=== PATIENT | male | born 1990 | race Caucasian/White ===

== ENCOUNTER 2019-10-10 15:45 | Emergency (ER) | payer OTHER, SELFPAY ==
[2019-10-10 15:57] VITALS: BP 138/73; PULSE 94; RESP 16; TEMP 36.9; O2SAT 99
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
[2019-10-10] MEDS: KETOROLAC (*BKC) 60 MG/2 ML VIAL IM (17:09)
== END 2019-10-10 17:40 | disposition home or self-care (01) ==
PROVIDERS: Emergency Provider Nurse Practitioner; PCP Physician Assistant
DX: M54.5 Low back pain (principal); M54.6 Pain in thoracic spine; Z87.891 Personal history of nicotine dependence
CPT/HCPCS: 96372; 99213; G0463; J1885

== ENCOUNTER 2020-12-29 14:01 | Emergency (ER) | payer OTHER, SELFPAY ==
--- NOTE | 2020-12-29 14:05 | ED.GENADULT ---
HPI - General Adult General Chief complaint: Nausea/Vomiting/Diarrhea Stated complaint: Back pain,upset stomach Time Seen by Provider: 12/29/20 14:16 Source: patient and RN notes reviewed Mode of arrival: ambulatory Limitations: no limitations History of Present Illness HPI narrative: 30-year-old male presents with multiple complaints. Reports chronic issues with back pain related to work. Reports over the last several days he has had mild low back muscle pain. He reports taking Tylenol, no other intervention. He denies perianal anesthesia, fever, abdominal pain. In a separate complaint he reports several episodes of vomiting and diarrhea last night after eating out at a restaurant. Reports no vomiting or diarrhea occurred overnight or today. Reports today he has been able to eat toast and drink soda without nausea vomiting or diarrhea. He denies bloody stools, decreased urine output, dry mouth. Denies intervention. MD complaint: Nausea vomiting Related Data Home Medications Medication Instructions Recorded Confirmed No Home Medications 12/29/20 12/29/20 Allergies Allergy/AdvReac Type Severity Reaction Status Date / Time No Known Allergies Allergy Verified 12/29/20 14:18 Review of Systems Review of Systems: Narrative: GENERAL: Well-appearing, well-nourished, and in no acute distress. HEAD: Normocephalic, atraumatic. EYES: PERRLA and EOMI. NECK: Supple. No lymphadenopathy. CHEST: Clear to auscultation. No respiratory distress. HEART: Regular rate and rhythm. Distal pulses palpable and equal, cap refill <3 seconds ABDOMEN: Soft, nontender, nondistended, normal active bowel sounds, no palpable or pulsatile masses. No CVA tenderness MUSCULOSKELETAL: Normal range of motion and strength in all extremities; 5/5 strength with hip flexion and extension, dorsiflexion and extension, knee flexion and extension, plantar flexion and extension. Normal sensation in dermatomal distributions with sensitivity to light touch and pain. No midline back tenderness to palpation. No paraspinal tenderness. Transfers from lying to sitting to standing. SKIN: Warm, dry, no rash. No ecchymosis, erythema, open wounds to back. NEURO: No focal deficits. Alert and oriented x3. Reflexes intact. Normal gait. PSYCH: Normal mood and affect All systems reviewed & are unremarkable except as noted in HPI and below PMFSH Social History Social History (Updated 10/10/19 @ 16:57 by Jana Alvarez CNP) Smoking status: Former smoker Alcohol intake: current Comments At time of signature, agree with nursing past medical, surgical, social and family history. There is no relevant family history pertinent to the presenting complaint Exam Narrative: Exam Narrative: GENERAL: Well-appearing, well-nourished, and in no acute distress. HEAD: Normocephalic. EYES: PERRLA, conjunctivae clear. NECK: Supple. No lymphadenopathy CHEST: Clear to auscultation. No respiratory distress. HEART: Regular rate and rhythm. ABDOMEN: Soft, nontender upon palpation, nondistended, normal active bowel sounds, no palpable or pulsatile masses, no guarding. No CVA tenderness SKIN: Warm, dry, no rash. NEURO: Alert and oriented x3. PSYCH: Normal mood and affect Course Course Emergency Course: Patient is aware of diagnosis, understands and agrees to treatment plan. Anticipatory guidance given. Patient agrees to follow-up as directed and is aware of reasons to seek care at the emergency department. Portions of this record may have been created with voice recognition software Vital Signs Vital signs: Vital Signs Temperature 98.3 F 12/29/20 14:08 Pulse Rate 92 12/29/20 14:08 Respiratory Rate 20 12/29/20 14:08 Blood Pressure 131/82 12/29/20 14:08 Pulse Oximetry 100 12/29/20 14:08 Temperature 98.3 F 12/29/20 14:08 Pulse Rate 92 12/29/20 14:08 Respiratory Rate 20 12/29/20 14:08 Blood Pressure 131/82 12/29/20 14:08 Pulse Oximetry 100 12/29/20 14
[2020-12-29 14:08] VITALS: BP 131/82; PULSE 92; RESP 20; TEMP 36.8; O2SAT 100
== END 2020-12-29 14:30 | disposition home or self-care (01) ==
PROVIDERS: Emergency Provider Nurse Practitioner; PCP Physician Assistant
DX: M54.5 Low back pain (principal); R11.2 Nausea with vomiting, unspecified; R19.7 Diarrhea, unspecified; Z87.891 Personal history of nicotine dependence
CPT/HCPCS: 99211; G0463

== ENCOUNTER 2021-03-01 16:48 | Emergency (ER) | payer OTHER, SELFPAY ==
--- NOTE | ~2021-03-01 | XR_ITS ---
EXAMINATION: XR cervical spine 4-5V DATE: 03/01/2021 17:58 INDICATION: Left-sided neck pain. TECHNIQUE: 5 views of cervical spine were obtained. COMPARISON: None. FINDINGS: There is mild kyphosis of cervical spine. There is 4 degrees dextrocurvature of cervical sp ine. Vertebral body heights and intervertebral disc heights are normal. The facet joints are unremark able. No central canal stenosis or prevertebral soft tissue swelling. IMPRESSION: 1. No etiology for the patient's symptoms. Reviewed, dictated and finalized at location A.
[2021-03-01 16:54] VITALS: BP 150/80; PULSE 105; RESP 18; TEMP 36.1; O2SAT 99
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
== END 2021-03-01 18:35 | disposition home or self-care (01) ==
PROVIDERS: Emergency Provider Nurse Practitioner; PCP Physician Assistant
DX: M54.2 Cervicalgia (principal); M10.9 Gout, unspecified
CPT/HCPCS: 72050; 99213; G0463

== ENCOUNTER 2023-09-15 19:16 | Emergency (ER) | payer OTHER, SELFPAY ==
[2023-09-15 19:22] VITALS: BP 137/82; PULSE 108; RESP 20; TEMP 37.1; O2SAT 100
[2023-09-15 19:41] VITALS: BP 137/82; PULSE 108; RESP 20; TEMP 37.1; O2SAT 100
--- NOTE | 2023-09-15 19:50 | ED.URI ---
HPI - URI/Sore Throat General Chief Complaint: Upper Respiratory Infection Stated Complaint: throat/headache/nausea Time Seen by Provider: 09/15/23 19:50 Source: patient, RN notes reviewed and old records reviewed Mode of arrival: ambulatory Limitations: no limitations History of Present Illness HPI Narrative: 33 year old male who presents to [facility] with complaints of sore throat, headache, cough, with some chest tightness with nausea and vomiting since Thursday. Patient reports that he has been exposed to co-workers who have had strep and flu. Patient reports that he has been taking cold/flu medication and using Emergen-C for his symptoms. Patient reports recent pain stimulator placed in his back by doctor at [facility]. MD elicited complaint: cough, sore throat and other (headache, nausea and vomiting) Onset (ago): day(s) (4) Pain scale (0-10): 5 Able to tolerate fluids by mouth: Yes Treatments prior to arrival: other (Emergen-C and cold and flu medication) Related Data Home Medications Medication Instructions Recorded Confirmed allopurinol 200 mg tablet 200 mg PO DAILY 09/15/23 09/15/23 colchicine 0.6 mg tablet 0.6 mg PO DAILY 09/15/23 09/15/23 indomethacin 50 mg capsule 50 mg PO TID 09/15/23 09/15/23 Allergies Allergy/AdvReac Type Severity Reaction Status Date / Time No Known Allergies Allergy Verified 09/15/23 19:32 Review of Systems Review of Systems: CONSTITUTIONAL: Reports malaise, chills, sweats, or fever. EYES: Denies visual changes, redness, or discharge. ENT: Reports rhinorrhea, congestion, sinus pain, no otalgia and positive for sore throat. CARDIOVASCULAR: Denies chest pain, palpitations, or edema. RESPIRATORY: Reports cough.? Denies dyspnea, states some chest tightness with cough GASTROINTESTINAL: Denies abdominal pain, positive for episodes of nausea, vomiting, no diarrhea SKIN: Denies rash or itching. MUSCULOSKELETAL: Denies myalgia. NEUROLOGIC:Reports headache. All systems reviewed & are unremarkable except as noted in HPI and below PMFSH Past Medical History Medical History (Updated 09/16/23 @ 13:43 by Ekta Reynoso NP) Asthma as child Gout Pain, chronic recent insertion of pain stimulator Surgical History Surgical History (Updated 09/16/23 @ 13:42 by Ekta Reynoso NP) History of foot surgery left Family History Family History Other Diabetes mellitus Heart disease Hypertension Social History Social History (Updated 03/01/21 @ 18:24 by Jana Alvarez, SVETLANA) Smoking status: Never smoker Alcohol intake: current Comments At time of signature, agree with nursing past medical, surgical, social and family history. There is no relevant family history pertinent to the presenting complaint Exam Narrative: GENERAL: Well-appearing, well-nourished, and in no acute distress. HEAD: Normocephalic EYES: PERRLA, conjunctivae clear ENT: Nares clear, turbinates edematous and erythematous, clear discharge. Mucous membranes moist. TM pearly june with dull light reflex bilaterally; no tragal tenderness. Oropharynx erythematous without lesions. Tonsils not enlarged and without exudate, no drooling, no hoarseness, no trismus, uvula midline.post nasal drainage. NECK: Supple. No lymphadenopathy CHEST: Clear to auscultation, breath sounds equal. No wheezing, rhonchi, rales, or stridor. No respiratory distress, speaks in full sentences.cough SAO2 100% on room air HEART: Regular rate and rhythm. No murmur heard. SKIN: Warm, dry, no rash. NEURO: Alert and oriented x3. PSYCH: Normal mood and affect Course Course Emergency Course: Patient is aware of diagnosis, understands and agrees to treatment plan.? Anticipatory guidance given.? Patient agrees to follow-up as directed and is aware of reasons to seek care at the emergency department. Portions of this record may have
== END 2023-09-15 20:16 | disposition home or self-care (01) ==
PROVIDERS: Emergency Provider Registered Nurse; PCP Physician Assistant
DX: B34.9 Viral infection, unspecified (principal); J45.909 Unspecified asthma, uncomplicated; Z79.899 Other long term (current) drug therapy; Z20.822 Contact with and (suspected) exposure to COVID-19
CPT/HCPCS: 87081; 87426; 87804; 87880; 99213; G0463

== ENCOUNTER 2024-04-15 14:20 | Emergency (ER) | payer OTHER, SELFPAY ==
[2024-04-15 14:25] VITALS: BP 132/96; PULSE 123; RESP 16; TEMP 37.2; O2SAT 100
[2024-04-15 14:30] VITALS: BP 132/96; PULSE 123; RESP 16; TEMP 37.2; O2SAT 100
--- NOTE | 2024-04-15 14:34 | ED.NAVMDI ---
HPI - Nausea/Vomiting/Diarrhea General Chief complaint: Nausea/Vomiting/Diarrhea Stated complaint: Diarrhea/Vimiting Time Seen by Provider: 04/15/24 14:34 Source: patient and RN notes reviewed Mode of arrival: ambulatory Limitations: no limitations History of Present Illness HPI Narrative: 34 y/o male presented after 2 days of n/v/d. States today symptoms are improving. Has attributed his symptoms to food poisoning, and has been working outside in the heat. Denies abdominal pain, hematochezia, melena, or fever. Took Nauzene for symptoms. Related Data Home Medications Medication Instructions Recorded Confirmed allopurinol 200 mg tablet 200 mg PO DAILY 09/15/23 09/15/23 colchicine 0.6 mg tablet 0.6 mg PO DAILY 09/15/23 09/15/23 indomethacin 50 mg capsule 50 mg PO TID 09/15/23 09/15/23 lisinopril 20 mg tablet mg 04/15/24 Allergies Allergy/AdvReac Type Severity Reaction Status Date / Time No Known Allergies Allergy Verified 09/15/23 19:32 Review of Systems Review of Systems: CONSTITUTIONAL: Denies body aches, fever, chills ENT: Denies rhinorrhea, congestion CARDIOVASCULAR: Denies chest pain, palpitations, or edema. RESPIRATORY: Denies cough or dyspnea. GASTROINTESTINAL: Endorses nausea, vomiting, diarrhea. Denies abdominal pain, hematochezia, melena, hematemesis SKIN: Denies rash, itching, or wounds. MUSCULOSKELETAL: Denies back pain, joint pain, or myalgia. NEUROLOGIC: Denies headache, numbness, tingling, or weakness. All systems reviewed & are unremarkable except as noted in HPI and below PMFSH Past Medical History Medical History Asthma as child Gout Pain, chronic recent insertion of pain stimulator Surgical History Surgical History History of foot surgery left Family History Family History Other Diabetes mellitus Heart disease Hypertension Social History Social History Smoking status: Never smoker Alcohol intake: current Comments At time of signature, I have reviewed and agree with nursing past medical, surgical, social and family history unless otherwise noted. Please see nursing chart for further information. There is no relevant family history pertinent to the presenting complaint Exam Narrative: GENERAL: Well-appearing, and in no acute distress. EYES: EOMI. Conjunctivae normal. ENT: Mucous membranes pink and moist. CHEST: No respiratory distress. Clear to auscultation. HEART: Regular rate and rhythm. No murmur appreciated. Normal peripheral pulses. ABDOMEN: abd soft, nondistended, normal active bowel sounds. Nontender abdomen; No guarding, rebound tenderness, asymmetry EXTREMITIES: Normal range of motion. No edema. SKIN: Warm, dry, no rash. Capillary refill normal. Normal skin turgor. NEURO: No focal deficits. Alert and oriented x3. PSYCH: Normal affect. Course Course Emergency Course: Patient is aware of diagnosis, understands and agrees to treatment plan. Anticipatory guidance given. Patient agrees to follow-up as directed and is aware of reasons to seek care at the emergency department. Portions of this record may have been created with voice recognition software Level of Care: Express Care Visit Vital Signs Vital signs: Vital Signs Temperature 98.9 F 04/15/24 14:25 Pulse Rate 123 H 04/15/24 14:25 Respiratory Rate 16 04/15/24 14:25 Blood Pressure 132/96 H 04/15/24 14:25 Pulse Oximetry 100 04/15/24 14:25 Oxygen Delivery Room Air 04/15/24 14:25 Temperature 98.9 F 04/15/24 14:30 Pulse Rate 123 H 04/15/24 14:30 Respiratory Rate 16 04/15/24 14:30 Blood Pressure 132/96 H 04/15/24 14:30 Pulse Oximetry 100 04/15/24 14:30 Oxygen Delivery Room Air 04/15/24 14:30 MDM - Nausea/Vomiting/
== END 2024-04-15 14:46 | disposition home or self-care (01) ==
PROVIDERS: Emergency Provider Nurse Practitioner Family; PCP Physician Assistant
DX: R11.2 Nausea with vomiting, unspecified (principal); R19.7 Diarrhea, unspecified; M10.9 Gout, unspecified
CPT/HCPCS: 99213; G0463

== ENCOUNTER 2024-12-20 22:15 | Emergency (ER) | payer OTHER, SELFPAY ==
--- NOTE | ~2024-12-20 | CT_ITS ---
CT thoracic lumbar wo con Ordering provider: Bairon Chamorro PA-C History: . mid back pain s/p lumbar injection . Comparison: None. Technique: CT thoracic and lumbar spine without contrast. Automated exposure control and iterative r econstruction technique were employed. The dose-length product was 2380.04 mGy-cm. FINDINGS: VERTEBRAE: Normal height and alignment. No subluxation or visible acute fracture. Degenerative change s of the lower thoracic and lumbar spine. DISC SPACES: Well maintained. No significant stenosis as visualized. Mild diffuse disc bulge is seen at the levels of L2-L3 and L3-L4. Diffuse disc bulge at the level of L4-L5 with narrowing of the left foramen. Mild diffuse disc bulge is seen at the level of L5-S1. PARASPINOUS SOFT TISSUES: Subcutaneous edema is seen in at the level of L2 and L5. This may be the si te of the injection. Infection is possible. Clinical correlation advised. IMPRESSION: No acute osseous abnormality of the thoracic and lumbar spine. Edema in the subcutaneous tissues opposite L2 and L5. This may be postinjection or due to infection. Clinical correlation advised. Reviewed, dictated and finalized at location A.
--- OUTSIDE RECORDS SUMMARY | 2024-12-20 22:17 | XMS_ITS | Clinical Summary ---
Author Organization [facility] Address [address] [place] [address] Care Team Providers Care Guard Driver Name Role Phone Ronak Kelly Primary Care Provider [phone] Allergies No known active allergies Medications colchicine (COLCRYS) 0.6 mg tablet Take 1 tablet (0.6 mg total) by mouth daily 2 Active allopurinoL (ZYLOPRIM) 300 mg tablet Take 1 tablet (300 mg total) by mouth daily Active celecoxib (CeleBREX) 200 mg capsule Take 1 capsule (200 mg total) by mouth daily 3 Active lisinopriL (PRINIVIL,ZESTR IL) 20 mg tablet Take 1 tablet (20 mg total) by mouth daily Active albuterol HFA (PROVENTIL HFA,VENTOLIN HFA,PROAIR HFA) 90 mcg/actuation inhaler Inhale 2 puffs every 6 (six) hours as needed for shortness of breath Active ALPRAZolam (XANAX) 0.5 mg tablet Take 1 tablet (0.5 mg total) by mouth nightly as needed for anxiety 30 tablet 4 Active indomethacin (INDOCIN) 25 mg capsule Take 1 capsule (25 mg total) by mouth 2 (two) times a day with meals Active fluticasone furoate (ARNUITY) 100 mcg/actuation inhaler Inhale 1 puff daily Rinse mouth with water after use. Do not swallow. 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 S/P insertion of spinal cord stimulator 02/25/20 23 No diagnosis on Huggins I 12/09/2022 Other chronic pain 12/09/2022 Pain in joint involving left ankle and foot 11/05 Complex regional pain syndro me type 1 of left lower extremity 11/05/2022 Chronic postoperative pain 11/05/2022 Foot pain 05/08/2022 Headache 05/08/2022 Hematochezia 05/08/2022 Pain in finger 05/08/2022 Tingling of skin 05/08/2022 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 Pulmonary at [address] [phone] Yamil Vance MD 11/29/2024 10:58 AM CDT - 11/29/2024 11:59 PM CDT Hospital Encounter [facility] Respiratory [address] [place] [address] SOB (shortness of breath) Discharge Disposition: Discharge to home or self care 11/08/[address] [facility] Pulmonary at [address] [phone] Katie Monroy LPN 11/07/[address] [facility] Pulmonary at [address] [phone] Inez Person LPN testing 11/01/2024 10:00 AM POLISHER ALUMINUM Office Visit [facility] Pulmonary at [address] [phone] Yamil Vance MD Panic attacks (Primary Dx); Hyperventilation; SOB (shortness of breath) 10/28/2024 3:49 PM POLISHER ALUMINUM - 10/28/2024 11:59 PM POLISHER ALUMINUM Hospital Encounter [facility] [address] [place] [address] Lumbar radicular pain Discharge Disposition: Discharge to home or self care from Last 3 Months Surgical History Surgery Date Site/Laterality Comments TREATMENT FISTULA ANAL FLUORO GUIDED ASPIRATION OR INJECTION INTERMEDIATE JOINT RIGHT 01/19/2023 Right ANKLE SURGERY Left os trigonum surgery FLUORO GUIDED ASPIRATION OR INJECTION INTERMEDIATE JOINT RIGHT 07/23/2023 Right OTHER SURGICAL HISTORY 02/05/2023 - 2023 INSERTION DORSAL ROOT GANGLION STIMULATOR Medical History Medical History Date Comments Gout Os trigonum syndrome Obesity Wears glasses Complex regional pain syndrome i of left lower l imb Back pain PONV (postoperative nausea and vomiting) Shortness of breath SOB (shortness of breath) Hypertension Family History Medical History Relation Name Comments Arthritis Father Diabetes Father Gout Father Arthritis Mother Diabetes Mother Gout Mother Relation Name Status Comments Father Alive Mother Alive Social History Tobacco Use Types Packs/Day Years Used Date Smoking Tobacco: Never Smokeless Tobacco: Never Tobacco Cessation:Counseling Given: Not Answered AUDIT-C Answer Date Recorded Q1: How often do you have a drink containing alc ohol? Never 08/01/2024 Average Number of Drinks Not on file 024 Frequency of Binge Drinking Not on file 07/09 Personal Safety Answer Date Recorded Have you ever been in or are you currently in a harmful physical or emotional relationship or is someone making you feel afraid or unsafe? Denies 08/20/2023 Sex and Gender Information Value Date Recorded Sex Assigned at Not on file Legal Sex Male 11:36 AM POLISHER ALUMINUM Gender Identity Not on file Sexual Orientation Not on file Obstetrics History Last Filed Vital Signs Vital Sign Reading Time Taken Comments Blood Pressure 120/70 11/01/2024 9:52 AM POLISHER ALUMINUM Pulse 90 11/01/2024 9:52 AM POLISHER ALUMINUM Temperature 35.6 C (96.1 F) 11/01/2024 9:52 AM POLISHER ALUMINUM Respiratory Rate 18 11/01/2024 9:52 AM POLISHER ALUMINUM Oxygen Saturation 99% 11/01/2024 9:52 AM POLISHER ALUMINUM Inhaled Oxygen Concentration - - Weight 127.1 kg (280 lb 1.6 oz) 11/01/2024 9:52 AM POLISHER ALUMINUM Height 188 cm (6' 2 ) 11/01/2024 9:52 AM POLISHER ALUMINUM Body Mass Index 35.96 11/01/2024 9:52 AM POLISHER ALUMINUM Plan of Treatment Health Maintenance Due Date Last Done Comments Depression Screening 1992 Hepatitis C Screening 1992 Varicella Vaccines (1 of 2 - 13+ 2-dose series) 2005 Regular Well Visit/Exam 18-64 2010 DTaP/Tdap/Td Vaccine (7 - Td or Tdap) 09/07/2020 09/07/2010, 04/01/2007, 02/27/1997, Additional history exists Influenza Vaccine (Season Ended) 2025 Hepatitis B Screening Completed 09/08/1997 , 03/31/1997, 02/27/1997 HPV Vaccines Aged Out No longer eligi ble based on patient's age to complete this topic Pneumococcal vaccine <65 Aged Out No longer eligible based on patient's age to complete this topic Medical Devices Implanted Type Area Speech Pathology Assistant Device Identifier Shelf Expiration Date Model / Serial / Lot [employer] Axium Slimtip 1mm 50cm 4 Electrode Lead Front Load Delivery 5mm [id number] - [id number] - [id number] Implanted:Qty: 1 on 02/16/2023 by Damon Dukes MD at [facility] N/A: Back [employer] 09/25/2024 [id number] / [id number] / [employer] Axium Slimtip 1mm 50cm 4 Electrode Lead Front Load Delivery 5mm [id number] - [id number] - [id number] Implanted:Qty: 1 on 02/16/2023 by Damon Dukes MD at [facility] N/A: Back [employer] 09/25/2024 [id number] / [id number] / [employer] Proclaim Pulse Generator Neurostimulator Dorsal Root Ganglion 3664 Contrlsys - [id number] - [id number] Implanted:Qty: 1 on 02/16/2023 by Damon Dukes MD at [facility] N/A: Back [employer] 07/15/2024 [id number] CONTRLSYS / [id number] / [employer] Neurostimulator Implantable Chronic Pain Rs2 [id number] - [id number] - [id number] Implanted:Qty: 1 on 08/20/2023 by Damon Dukes MD at [facility] Right: Back [employer] 06/04/2024 [id number] / [id number] / [employer] Vectris 5mm 60cm 1x8 Electrode Mri Lead Neurostimulator [id number] - [id number] Implanted:Qty: 1 on 08/20/2023 by Damon Dukes MD at [facility] Right: Back [employer] 07/02/2027 [id number] / / [id number] [employer] Vectris 5mm 60cm 1x8 Electrode Mri Lead Neurostimulator [id number] - [id number] Implanted:Qty: 1 on 08/20/2023 by Damon Dukes MD at [facility] Right: Back [employer] 07/07/2027 [id number] / / [id number] [employer] Envelope Absrb 2.7x2.5in Antibacterial Tyrx Medium Strl [id number] - [id number] Implanted:Qty: 1 on 08/20/2023 by Damon Dukes MD at [facility] Right: Back [employer] 05/09/2024 [id number] / / [id number] Procedures Procedure Name Priority Date/Time Associated Diagnosis Comments PULMONARY FUNCTION TEST (PFT) Routine 11/29/2024 12:09 PM CDT SOB (shortness of breath) MRI LUMBAR SPINE WO CONTRAST Schedule Routine, Read Routine (OP Routine) 10/28/2024 4:28 PM POLISHER ALUMINUM Lumbar radicular pain from Last 3 Months Results * Pulmonary Function Test - (11/29/2024 12:09 PM CDT) Anatomical Region Laterality Modality PFT 11/29/2024 11:1 3 AM CDT Impressions 11/30/2024 3:29 PM CDT 1. Pre bronchodilator spirometry demonstrates mild obstructive defect. Post bronchodilator spirometry normalizes. 2. There is significant bronchodilator response. 3. Lung volumes are normal. 4. Moderate diffusion impairment. 5. Total 6 minute walk distance is 980 feet. At this level exertion the patient did not have any exercise-induced hypoxemia requiring supplemental oxygen. 6. Inspiratory limb on flow volume loop shows plateauing. Concerning for potential variable extrathoracic obstruction. Clinical correlation is advised. Electronically signed by Tristin Carrasco DO Pulmonary & Critical Care Narrative 11/30/2024 3:29 PM CDT PULMONARY FUNCTION TESTS Jeovanny Morrowis 34 y.o. 11/30/2024 INTERPRETATION Please see technologist's comments mentioned in attached results report. SPIROMETRY: Pre bronchodilator FEV1 is 75 % predicted, FVC is 86 % predicted, FEV1/FVC is 71 Bronchodilator response: There is significant bronchodilator response. Inspection of the patient's flow-volume loops shows: There is plateauing of inspiratory flow limb concerning for potential variable extrathoracic obstruction. LUNG VOLUMES: Lung volumes by body plethysmography: TLC is 83 % predicted, RV is 64 % predicted DLCO: Unadjusted for hemoglobin and carboxyhemoglobin DLCO is 78 % predicted SIX MINUTE WALK TEST Interpretation: The patient walked for 6 minutes on level ground and covered total distance of 980 feet. On the Al scale at baseline, reported dyspnea was 0. At the end of the study, reported dyspnea on the Al scale was 1. Oxygen saturation remained above 98% throughout the study. Yamil Vance MD PFT ORDERABLES Final Result * MRI Lumbar Spine WO Contrast (10/28/2024 4:28 PM POLISHER ALUMINUM) Anatomical Region Laterality Modality Spine N/A Magnetic Resonan ce 10/30/2024 7:27 AM POLISHER ALUMINUM Narrative 10/30/2024 7:36 AM POLISHER ALUMINUM EXAM DESCRIPTION: MRI LUMBAR SPINE WO CONTRAST REASON FOR STUDY: Chronic left foot pain for the past 4 years. No provided lumbar spine or back complaints. No provided history of trauma or inciting events, though patient reports resultant difficulty walking or applying pressure to left foot. No provided past medical history. History of 5 unspecified lumbar surgeries of unspecified dates as well as history of unspecified type, location, and dates injections. Per imaging record, dual lead thoracic spinal stimulator. TECHNIQUE: Sagittal and axial imaging of the lumbar spine includes T1, T2, STIR sequences. Images saved to PACS. COMPARISON: Thoracic and lumbar spine radiograph 05/26/2024; FINDINGS: SEGMENTATION: For the purposes of this study, the lowest fully formed intervertebral disc level is labeled L5-S1. ALIGNMENT: Alignment and curvature unchanged. VERTEBRAE: No MR evidence of acute-subacute fracture. Vertebral body heights unchanged. Spondylosis. Tiny hemangioma L1 vertebral body. DISC HEIGHT: Multilevel variable intervertebral disc desiccation and loss of intervertebral disc height. HARDWARE: None in the lumbar spine. CORD/CAUDA: Normal in size and signal intensity with conus medullaris termination at the inferior aspect of L1. LOWER THORACIC: Incompletely imaged. No stenosis demonstrated. INDIVIDUAL DISC LEVELS: L1-2: Annular disc bulge. Bilateral hypertrophic facet arthropathy. Mild spinal canal stenosis. No neural foraminal stenosis. L2-3: Minimal-mild annular disc bulge. Bilateral hypertrophic facet arthropathy. Mild spinal canal stenosis. Slight bilateral inferior neural foraminal stenosis. L3-4: Annular disc bulge with shallow left subarticular disc protrusion. Bilateral hypertrophic facet arthropathy. No spinal canal stenosis. Mild bilateral inferior neural foraminal stenosis, noting slight disc contact with the exiting bilateral L3 nerve roots. L4-5: Mild annular disc bulge. Bilateral hypertrophic facet arthropathy. No spinal canal stenosis. Moderate left and mild right neural foraminal stenosis, noting combination of posterior cortical margin/disc and arthropathic facet variable contact with exiting bilateral L4 nerve roots. L5-S1: No diffuse disc bulge or focal herniation. Bilateral hypertrophic facet arthropathy. No spinal canal stenosis. No neural foraminal stenosis. SACRUM: Visualized upper sacrum intact. VISUALIZED UPPER ABDOMEN: No significant abnormality. OTHER: No other significant findings. IMPRESSION: Spondylosis and degenerative disc disease of the lumbar spine as detailed level by level above. THIS IS AN ELECTRONICALLY VERIFIED FINAL REPORT 10/30/2024 7:36 AM - Electronically signed by Mohamud Langley M.D. JOSEPH: JOSEPH Report ID: [id number] Reading Location: [place] [address] Procedure Note Mohamud Langley MD - 10/30/2024 EXAM DESCRIPTION: MRI LUMBAR SPINE WO CONTRAST REASON FOR STUDY: Chronic left foot pain for the past 4 years. Noprovided lumbar spine or back complaints. No provided history of trauma orinciting events, though patient reports resultant difficulty walking or applying pressure to left foot. No provided past medical history. History of 5 unspecified lumbar surgeries of unspecified dates as well as history of unspecified type, location, and dates injections. Per imaging record, dual lead thoracic spinal stimulator. TECHNIQUE: Sagittal and axial imaging of the lumbar spine includes T1,T2, STIR sequences. Images saved to PACS. COMPARISON: Thoracic and lumbar spine radiograph 05/26/2024; FINDINGS: SEGMENTATION: For the purposes of this study, the lowest fully formed intervertebral disc level is labeled L5-S1. ALIGNMENT: Alignment and curvature unchanged. VERTEBRAE: No MR evidence of acute-subacute fracture. Vertebral body heights unchanged. Spondylosis. Tiny hemangioma L1 vertebral body. DISC HEIGHT: Multilevel variable intervertebral disc desiccation andloss of intervertebral disc height. HARDWARE: None in the lumbar spine. CORD/CAUDA: Normal in size and signal intensity with conus medullaris termination at the inferior aspect of L1. LOWER THORACIC: Incompletely imaged. No stenosis demonstrated. INDIVIDUAL DISC LEVELS: L1-2: Annular disc bulge. Bilateral hypertrophic facet arthropathy.Mild spinal canal stenosis. No neural foraminal stenosis. L2-3: Minimal-mild annular disc bulge. Bilateral hypertrophic facet arthropathy. Mild spinal canal stenosis. Slight bilateral inferiorneural foraminal stenosis. L3-4: Annular disc bulge with shallow left subarticular disc protrusion. Bilateral hypertrophic facet arthropathy. No spinal canal stenosis. Mild bilateral inferior neural foraminal stenosis, noting slight disc contactwith the exiting bilateral L3 nerve roots. L4-5: Mild annular disc bulge. Bilateral hypertrophic facetarthropathy. No spinal canal stenosis. Moderate left and mild right neural foraminal stenosis, noting combination of posterior cortical margin/disc and arthropathic facet variable contact with exiting bilateral L4 nerve roots. L5-S1: No diffuse disc bulge or focal herniation. Bilateralhypertrophic facet arthropathy. No spinal canal stenosis. No neural foraminalstenosis. SACRUM: Visualized upper sacrum intact. VISUALIZED UPPER ABDOMEN: No significant abnormality. OTHER: No other significant findings. IMPRESSION: Spondylosis and degenerative disc disease of the lumbar spine asdetailed level by level above. THIS IS AN ELECTRONICALLY VERIFIED FINAL REPORT 10/30/2024 7:36 AM - Electronically signed by Mohamud Langley M.D. JOSEPH: JOSEPH Report ID: [id number] Reading Location: [place] [address] Cheryle Duran ENTRY LEVEL ACCOUNT MANAGER IMG MRI PROCEDURES Final Re sult from Last 3 Months Insurance [facility] Address: [address] [id number] [facility]/PPO Address: [address] [address] [facility] H[facility]/PPO Address: [address] [address] Care Teams Guard Driver Relationship Specialty Start Date End Date Ronak Kelly PA [address] [place] [address] PCP - General Family Practice 10/23/21
--- OUTSIDE RECORDS SUMMARY | 2024-12-20 22:17 | XMS_ITS | Clinical Summary ---
Author Organization [facility] Address [address] [place] [address] Care Team Providers Care Foundry Worker Apprentice Name Role Phone Unavailable Primary Care Provider Unavailabl e Source Comments [facility],non-owned Affiliates and Associated Physician Practices is amultiple site organization consisting of ambulatory clinics and hospital sitesin [place], [place], [place] and [place]. This disclosure is being madepursuant to the Care Everywhere program and may not contain all information available regarding this patient. Last updated 18.[facility] Allergies No known active allergies Medications * Be aware that medications may not be up to date on this document. Alwaysverify current medications with the patient. HYDROcodone-mike taminophen (NORCO) 5-325 MG tablet Take 1 (one) tablet by mouth every 6 hours as needed for Pain 30 tablet 10/05/2020 Active docusate sodium (COLACE) 50 MG capsule Take 1 (one) capsule by mouth once daily 14 capsule 10/05/2020 Active Gauze Pads & Dressings (GAUZE DRESSING) 4 X4 PADS Use 24 Each 2 times daily as needed 24 Each 1 10/05/2020 Active Gauze Pads & Dressings (CURITY ABDOMINAL) 5 X9 PADS Use 36 Each 2 times daily as needed 36 Each 1 10/05/2020 Active Active Problems No known active problems Family History Medical History Relation Name Comments CVA Father Hypertension Mother Relation Name Status Comments Father Mother Social History Tobacco Use Types Packs/Day Years Used Date Smoking Tobacco: Never Smokeless Tobacco: Never Alcohol Use Standard Drinks/Week Comments Yes 0 (1 standard drink = 0.6 oz pur e alcohol) Sex and Gender Information Value Date Recorded Sex Assigned at Not on file Legal Sex Male 8:00 AM TIRE DUSTER Gender Identity Not on file Sexual Orientation Not on file Last Filed Vital Signs Vital Sign Reading Time Taken Comments Blood Pressure 138/76 10/18/2020 1:45 PM TIRE DUSTER Pulse 95 10/18/2020 1:45 PM TIRE DUSTER Temperature 36 C (96.8 F) 10/18/2020 1:45 PM TIRE DUSTER Respiratory Rate 20 10/18/2020 1:45 PM TIRE DUSTER Oxygen Saturation 95% 10/05/2020 3:19 PM TIRE DUSTER Inhaled Oxygen Concentration - - Weight 137 kg (302 lb) 10/18/2020 1:45 PM TIRE DUSTER Height 185.4 cm (6' 1 ) 10/18/2020 1:45 PM TIRE DUSTER Body Mass Index 39.84 10/18/2020 1:45 PM TIRE DUSTER Plan of Treatment Health Maintenance Due Date Last Done Comments HIV SCREENING 2007 HEPATITIS C SCREENING 03/02/2010 DTAP/TDAP/TD VACCINES (1 - Tdap) 2011 HEPATITIS B VACCINE (1 of 3 - 19+ 3-dose series) 2011 COVID-19 VACCINE ( - 2023-2 5 season) 2024 DEPRESSION SCREENING 09/07/2024 INFLUENZA VACCINE (Season Ended) 2025 ZOSTER VACCINE (1 of 2) 2042 HIB VACCINE Aged Out No longer eligi ble based on patient's age to complete this topic HPV VACCINE Aged Out No longer eligi ble based on patient's age to complete this topic MENINGOCOCCAL (Group B) VACC INE SHARED DECISION-MAKING Aged Out No longer eligibl e based on patient's age to complete this topic MENINGOCOCCAL GROUPS A/C/Y/W VACCINE Aged Out No longer eligible b ased on patient's age to complete this topic PNEUMOCOCCAL VACCINE Aged Out No long er eligible based on patient's age to complete this topic Insurance [id number] [place] [address]
--- OUTSIDE RECORDS SUMMARY | 2024-12-20 22:17 | XMS_ITS | Referral Summary ---
Author Organization [facility] Address [address] [place] [address] Care Team Providers Care Sales Account Associate Name Role Phone Ronak Kelly Primary Care Provider [phone] Encounters Date Type Department Care Team Description 12/20/2024 Results Follow-Up [facility] Pulmonary at [address] [address] Yamil Vance MD 11/29/2024 10:58 AM CDT - 11/29/2024 11:59 PM CDT Hospital Encounter [facility] Respiratory [address] [place] [address] SOB (shortness of breath) Discharge Disposition: Discharge to home or self care 11/08/2024 Telephone [facility] Pulmonary at [address] [address] Katie Monroy LPN 11/07/2024 Telephone [facility] Pulmonary at [address] [address] Inez Person LPN testing 11/01/2024 10:00 AM MD PSYCHIATRY Office Visit [facility] Pulmonary at [address] [address] Yamil Vance MD Panic attacks (Primary Dx); Hyperventilation; SOB (shortness of breath) 10/28/2024 3:49 PM MD PSYCHIATRY - 10/28/2024 11:59 PM MD PSYCHIATRY Hospital Encounter [facility] [address] [place] [address] Lumbar radicular pain Discharge Disposition: Discharge to home or self care from Last 3 Months Allergies No known active allergies Medications colchicine [...] cord stimulator 02/25/20 23 No diagnosis on [place]eli I 12/09/2022 Other chronic pain 12/09/2022 Pain [...] 03/14/2016 Plantar fasciitis 03/14/2016 Anal pain 07/27/2015 Social History Tobacco Use Types Packs/Day Years [...] on file Legal Sex Male 11:36 AM MD PSYCHIATRY Gender Identity Not on file Sexual Orientation Not on file Last Filed Vital Signs Vital Sign Reading Time Taken Comments Blood Pressure 120/70 11/01/2024 9:52 AM MD PSYCHIATRY Pulse 90 11/01/2024 9:52 AM MD PSYCHIATRY Temperature 35.6 C (96.1 F) 11/01/2024 9:52 AM MD PSYCHIATRY Respiratory Rate 18 11/01/2024 9:52 AM MD PSYCHIATRY Oxygen Saturation 99% 11/01/2024 9:52 AM MD PSYCHIATRY Inhaled Oxygen Concentration - - Weight 127.1 kg (280 lb 1.6 oz) 11/01/2024 9:52 AM MD PSYCHIATRY Height 188 cm (6' 2 ) 11/01/2024 9:52 AM MD PSYCHIATRY Body Mass Index 35.96 11/01/2024 9:52 AM MD PSYCHIATRY Plan of Treatment Not on file Medical Devices Implanted Type Area Computer Network Engineer Device Identifier Shelf Expiration Date Model / Serial / Lot [employer] Axium Slimtip 1mm 50cm 4 Electrode Lead Front Load Delivery 5mm [id number] - [id number] - [id number] Implanted:Qty: 1 on 02/16/2023 by Damon Dukes MD at [facility] N/A: Back [employer] 09/25/2024 [id number] / [id number] / [employer] Axium Slimtip 1mm 50cm 4 Electrode Lead Front Load Delivery 5mm [id number] - [id number] - [id number] Implanted:Qty: 1 on 02/16/2023 by Damon Dukes MD at [facility] N/A: Back [employer] 09/25/2024 [id number] / [id number] / [employer] Proclaim Pulse Generator Neurostimulator Dorsal Root Ganglion 3664 Contrlsys - [id number] - [id number] Implanted:Qty: 1 on 02/16/2023 by Damon Dukes MD at [facility] N/A: Back [employer] 07/15/2024 [id number] CONTRLSYS / [id number] / Med[employer] Inc Neurostimulator Implantable Chronic Pain Rs2 [id number] - [id number] - [id number] Implanted:Qty: 1 on 08/20/2023 by Damon Dukes MD at [facility] Right: Back [employer] 06/04/2024 [id number] / [id number] / [employer] Vectris 5mm 60cm 1x8 Electrode Mri Lead Neurostimulator [id number] - [id number] Implanted:Qty: 1 on 08/20/2023 by Damon Dukes MD at [facility] Right: Back [employer] 07/02/2027 [id number] / / [id number] [employer] Inc Vectris 5mm 60cm 1x8 Electrode Mri Lead Neurostimulator [id number] - [id number] Implanted:Qty: 1 on 08/20/2023 by Damon Dukes MD at [facility] Right: Back [employer] 07/07/2027 [id number] / / [id number] [employer] Inc Envelope Absrb 2.7x2.5in Antibacterial Tyrx Medium Strl [id number] - [id number] Implanted:Qty: 1 on 08/20/2023 by Damon Dukes MD at [facility] Right: Back [employer] 05/09/2024 [id number] / / [id number] Procedures Procedure Name Priority Date/Time Associated Diagnosis Comments PULMONARY FUNCTION TEST (PFT) Routine 11/29/2024 12:09 PM CDT SOB (shortness of breath) MRI LUMBAR SPINE WO CONTRAST Schedule Routine, Read Routine (OP Routine) 10/28/2024 4:28 PM MD PSYCHIATRY Lumbar radicular pain from Last 3 Months [...] 3:29 PM CDT PULMONARY FUNCTION TESTS Jeovanny A Genaro 34 y.o. 11/30/2024 INTERPRETATION Please see technologist's [...] saturation remained above 98% throughout the study. us Yamil Vance MD PFT ORDERABLES Final Result * MRI Lumbar Spine WO Contrast (10/28/2024 4:28 PM MD PSYCHIATRY) Anatomical Region Laterality Modality Spine N/A Magnetic Resonan ce 10/30/2024 7:27 AM MD PSYCHIATRY Narrative 10/30/2024 7:36 AM MD PSYCHIATRY EXAM DESCRIPTION: MRI LUMBAR SPINE WO CONTRAST [...] Mohamud Langley M.D. JOSEPH: JOSEPH Report ID: [id number] Reading Location: [place] [address] Procedure Note Mohamud Langley MD - 10/30/2024 [...] Mohamud Langley M.D. JOSEPH: JOSEPH Report ID: [id number] Reading Location: [place] [address] Cheryle Duran NP IMG MRI PROCEDURES Final Re sult from Last 3 Months Insurance [facility] Care Teams Sales Account Associate Relationship Specialty Start Date End Date Ronak Kelly PA [address] [place] [address] PCP - General Family Practice 10/23/21
--- OUTSIDE RECORDS SUMMARY | 2024-12-20 22:17 | XMS_ITS | Clinical Summary ---
Author Organization [facility] Facility Address [address] [address] Care Team Providers Care Billing Manager Name Role Phone Unavailable Primary Care Provider Unavailabl e Social History Tobacco Use Types Packs/Day Years Used Date Smoking Tobacco: Never Assessed Sex and Gender Information Value Date Recorded Sex Assigned at Not on file Legal Sex Male 11:56 AM EST Gender Identity Not on file Sexual Orientation Not on file Plan of Treatment Health Maintenance Due Date Last Done Comments Pneumococcal Vaccine: Peds ( 0 to 5 Years) and At-Risk Patients (6 to 49 Years) (1 of 2 - PCV) 2011 Influenza Vaccine (Season Ended) 2025 Hepatitis B Vaccine Completed 09/08/1997, 03/31/1997, 02/27/1997
--- OUTSIDE RECORDS SUMMARY | 2024-12-20 22:17 | XMS_ITS | Encounter Summary ---
Author Organization [facility] Address [address] [place] [address] Care Team Providers Care Emergency Service Restorer Name Role Phone Ronak Kelly Primary Care Provider [phone] Encounter Details Date Type Department Care Team ([facility] st Contact Info) Description 12/20/2024 Results Follow-Up [facility] Pulmonary at [address] [place] [address] Yamil Vance MD [address] [place] [address] [address] [place] [address] Social History Tobacco Use Types Packs/Day Years Used Date Smoking Tobacco: Never Smokeless Tobacco: Never AUDIT-C Answer Date Recorded Q1: How often [...] on file Legal Sex Male 11:36 AM ACCOUNT DIRECTOR Gender Identity Not on file Sexual Orientation Not on file documented as of this encounter Ordered Prescriptions Prescription Sig Dispense Quantity Refills Last Filled Start Date End Date albuterol-budesoni de 90-80 mcg/actuation HFA aerosol inhaler Inhale 2 puffs every 6 (six) hours as needed (For cough, shortness of breath or wheezing) 10.7 g 11 12/20/2024 fluticasone furoate (ARNUITY) 100 mcg/actuation inhaler Inhale 1 puff daily Rinse mouth with water after use. Do not swallow. 30 each 12/20/2024 documented in this encounter Plan of Treatment Not on file documented as of this encounter Visit Diagnoses Not on filedocumented in this encounter Care Teams Emergency Service Restorer Relationship Specialty Start Date End Date Ronak Kelly PA [address] [place] [address] PCP - General Family Practice 10/23/21 documented as of this encounter
--- OUTSIDE RECORDS SUMMARY | 2024-12-20 22:17 | XMS_ITS | Clinical Summary ---
Author Organization [facility] Address [address] [place] [address] Phone Care Team Providers Care Synchronizer Name Role Phone Ronak Kelly Primary Care Provider [phone] Allergies No known active allergies Medications fluticasone (FLONASE) 50 MCG/ACT SuspensionIndic ations:Nasal congestion 2 Sprays by Nasal route daily. 1-2 sprays each nostril daily for nasal congestion and allergies. 1 Bottle 2 9 Active Additional Information Patient not taking.Reported on 09/17/2021 allopurinol (ZYLOPRIM) 100 MG Tablet Take 1 Tablet by mouth daily. 30 Tablet 1 Active HYDROcodone-mike taminophen ([place]) 7.5-325 MG TabletIndicatio ns:Chronic pain of left ankle Take 1 Tablet by mouth every 8 hours as needed for Severe pain. 12 Tablet 3 Active Active Problems Problem Noted Date Diagnosed Date Chronic neck pain 11/19/2018 Chronic low back pain 07/15/2018 Encounters Date Type Department Care Team Description 12/20/2024 9:16 PM CDT - 12/20/2024 9:38 PM CDT Emergency [facility] Emergency [address] [place] [address] Discharge Disposition: LWBS 12/20/2024 Travel 10/31/2024 4:34 PM MICROFICHE CAMERA OPERATOR - 10/31/2024 5:54 PM MICROFICHE CAMERA OPERATOR Emergency [facility] Emergency [address] [place] [address] Columba Mares, REEL TENDER, LEVEL VIAL SETTER Hypokalemia Discharge Disposition: Left Against Medical Advice 10/31/2024 Travel from Last 3 Months Immunizations Immunization Administration Dates Next Due DTP Vaccine 02/27/1997, 4,1992,07/09,1992 Hepatitis A Vaccine,unspecif ied Formulation 04/01/2007 Hepatitis B Vaccine, Pediatric/adolescent 09/08/1997,03/31/1997,02/27/1997 Hib Vaccine,unspecified Formulation 04/1993,1992,1992,05/08 MMR Vaccine 02/27/1997,06/14/1993 Meningococcal C Conjugate Vaccine 04/01/2007 OPV 02/27/1997, 4,1992,05/08 TD VACCINE 04/01/2007 Family History Medical History Relation Name Comments No Known Problems Brother Diabetes Father Heart Surgery Father stint Hypertension Father Stroke Father Cancer Maternal Grandfather Heart Disease Maternal Grandfather Heart Disease Maternal Grandmother Hypertension Mother Heart Disease Paternal Grandfather Cancer Paternal Grandmother No Known Problems Sister 1 No Known Problems Sister 2 Relation Name Status Comments Brother Alive Father Alive Maternal Grandfather Maternal Grandmother Mother Alive Paternal Grandfather Paternal Grandmother Sister 1 Alive Sister 2 Alive Social History Tobacco Use Types Packs/Day Years Used Date Smoking Tobacco: Never Smokeless Tobacco: Never Chew Tobacco Cessation:Counseling Given: No Comments:only chews once in a while Alcohol Use Standard Drinks/Week Comments Yes 0 (1 standard drink = 0.6 oz pur e alcohol) Weekend once a while PHQ-2 Answer Date Recorded PHQ-2 Score 0 05/24/2019 Sexually Active Control Partners Comments Yes Condom Female Sex and Gender Information Value Date Recorded Sex Assigned at Not on file Legal Sex Male 10:25 PM CDT Gender Identity Not on file Sexual Orientation Not on file 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 Not on file Not on file Not on file Last Filed Vital Signs Vital Sign Reading Time Taken Comments Blood Pressure 143/87 12/20/2024 9:14 PM CDT Pulse 78 12/20/2024 9:14 PM CDT Temperature 36.2 C (97.1 F) 12/20/2024 9:14 PM CDT Respiratory Rate 15 12/20/2024 9:14 PM CDT Oxygen Saturation 97% 12/20/2024 9:14 PM CDT Inhaled Oxygen Concentration - - Weight 122.5 kg (270 lb) 12/20/2024 9:14 PM CDT Height 188 cm (6' 2 ) 12/20/2024 9:14 PM CDT Body Mass Index 34.67 12/20/2024 9:14 PM CDT Plan of Treatment Health Maintenance Due Date Last Done Comments Hepatitis C Virus (HCV) Screening 1992 DTaP/Tdap/Td Immunization (6 - Tdap) 04/02/2007 04/01/2007, 02/27/1997, 09/11/1993, Additional history exists SARS-COV-2 Immunization (2023- season) 2024 Influenza Immunization (Season Ended) 2025 Respiratory Syncytial Virus (RSV) Immunization (Adult) (1 - 1-dose 75+ series) 2067 Hepatitis B Immunization Completed 998, 03/31/1997, 02/27/1997 Meningococcal Immunization (ACWY) Aged Out No longer eligible based on patient's age to complete this topic Pneumococcal Immunization Combined Aged Out No longer eligible based on patient's age to complete this topic Rotavirus Immunization Aged Out No lo nger eligible based on patient's age to complete this topic Procedures Procedure Name Priority Date/Time Associated Diagnosis Comments XR CHEST 2 VIEWS STAT 10/31/2024 5:08 PM MICROFICHE CAMERA OPERATOR GOLD TOP TUBE STAT 10/31/2024 4:52 PM MICROFICHE CAMERA OPERATOR CBC WITH AUTO DIFFERENTIAL STAT 10/31/2024 4:52 PM MICROFICHE CAMERA OPERATOR EXTRA TUBES STAT 10/31/2024 4:52 PM MICROFICHE CAMERA OPERATOR B-TYPE NATRIURETIC PEPTIDE (BNP) STAT 10/31/2024 4:52 PM MICROFICHE CAMERA OPERATOR D-DIMER STAT 10/31/2024 4:52 PM MICROFICHE CAMERA OPERATOR TROPONIN I, HIGH SENSITIVITY (HSTRP) STAT 10/31/2024 4:52 PM MICROFICHE CAMERA OPERATOR COMPLETE BLOOD COUNT (CBC) WITH DIFF STAT 10/31/2024 4:52 PM MICROFICHE CAMERA OPERATOR CMP (COMPREHENSIVE METABOLIC PANEL) STAT 10/31/2024 4:52 PM MICROFICHE CAMERA OPERATOR from Last 3 Months Results * XR CHEST 2 VIEWS (10/31/2024 5:08 PM MICROFICHE CAMERA OPERATOR) Anatomical Region Laterality Modality Chest N/A Digital Radiogra phy 10/31/2024 5:15 PM MICROFICHE CAMERA OPERATOR Impressions 10/31/2024 5:18 PM MICROFICHE CAMERA OPERATOR IMPRESSION: No acute cardiopulmonary abnormality. Narrative 10/31/2024 5:18 PM MICROFICHE CAMERA OPERATOR EXAM DESCRIPTION: XR CHEST 2 VIEWS REASON FOR STUDY: pt c/o intermittent chest pain and shortness of breath for at least a year. States he was told by my quack of a credit and loan collections supervisor that I had asthma. TECHNIQUE: Frontal and lateral radiographic view(s) of the chest. COMPARISON: Chest CT dated 08/01/2024. FINDINGS: LUNGS: No focal opacity, pleural effusion, or pneumothorax. HEART/MEDIASTINUM: Cardiac silhouette normal in size. Mediastinal and hilar contours appear normal. LINES/TUBES: None. BONES: No acute osseous abnormality. THIS IS AN ELECTRONICALLY VERIFIED FINAL REPORT 10/31/2024 5:15 PM - Electronically signed by Jeronimo Diaz M.D. MF: [email or web address] Report ID: [id number] Reading Location: [id number] Procedure Note Jeronimo Diaz, DO - 10/31/2024 EXAM DESCRIPTION: XR CHEST 2 VIEWS REASON FOR STUDY: pt c/o intermittent chest pain and shortness of breath for at least a year. States he was told by my quack of a credit and loan collections supervisor that I had asthma. TECHNIQUE: Frontal and lateral radiographic view(s) of the chest. COMPARISON: Chest CT dated 08/01/2024. FINDINGS: LUNGS: No focal opacity, pleural effusion, or pneumothorax. HEART/MEDIASTINUM: Cardiac silhouette normal in size. Mediastinal and hilar contours appear normal. LINES/TUBES: None. BONES: No acute osseous abnormality. THIS IS AN ELECTRONICALLY VERIFIED FINAL REPORT 10/31/2024 5:15 PM - Electronically signed by Jeronimo Diaz M.D. MF: [email or web address] Report ID: [id number] Reading Location: [place] [address] IMPRESSION: No acute cardiopulmonary abnormality. Columba Mares APRN, CNP IMG DIAGNOSTIC ORD ERABLES Final Result * TROPONIN I, HIGH SENSITIVITY (HSTRP) (10/31/2024 4:52 PM MICROFICHE CAMERA OPERATOR) [facility] TROPONIN I, HIGH SENSITIVITY- [place] 4 <=35 ng/L 10/31/2024 5:29 PM MICROFICHE CAMERA OPERATOR [facility] Comment: High-sensitivity troponin I results are reported in ng/L making the result appear to be 1,000 times higher than the contemporary troponin I value which is reported in ng/ml. Results from [place]. Blood Venipuncture / Unknown 10/31/2024 4:52 PM MICROFICHE CAMERA OPERATOR 10/31/2024 5:00 PM MICROFICHE CAMERA OPERATOR Yuri Simpson DO CHEMISTRY ORDERABLES Fi nal Result Performing Organization Address City/[facility]/ZIP Co de Phone Number [facility] [address] [place] [address] * Gold Top Tube (10/31/2024 4:52 PM MICROFICHE CAMERA OPERATOR) Blood No Phlebotomy Charged / Unknown 10/31/2024 4:52 PM MICROFICHE CAMERA OPERATOR 10/31/2024 5:02 PM MICROFICHE CAMERA OPERATOR Columba Mares APRN, CNP CHEMISTRY ORDERABL ES Final Result Performing Organization Address City/[facility]/ZIP Co de Phone Number [facility] [address] [place] [address] * (ABNORMAL) CBC with Auto Differential (10/31/2024 4:52 PM [facility] [[email or web address] WBC 7.73 4.00 - 12.00 10(3)/mcL 10/31/2024 5:06 PM [facility] RBC 5.48 4.40 - 5.80 10(6)/mcL 10/31/2024 5:06 PM [facility] HEMOGLOBIN (HGB) 16.6(H) 13.0 - 16.5 g/dL 10/31/2024 5:06 PM [facility] HEMATOCRIT (HCT) 45.5 38.0 - 50.0 % 10/31/2024 5:06 PM [facility] MCV 83.0 82.0 - 96.0 fL 10/31/2024 5:06 PM [facility] MCH 30.3 26.0 - 32.0 pg 10/31/2024 5:06 PM [facility] MCHC 36.5(H) 31.0 - 36.0 g/dL 10/31/2024 5:06 PM [facility] PLATELET COUNT 333 140 - 440 10(3)/mcL 10/31/2024 5:06 PM [facility] RDW 12.8 11.8 - 15.5 % 10/31/2024 5:06 PM [facility] MPV 9.4 8.0 - 12.6 fL 10/31/2024 5:06 PM [facility] NEUTROPHILS 64.2 40.0 - 68.0 % 10/31/2024 5:06 PM [facility] LYMPHOCYTES 28.8 19.0 - 49.0 % 10/31/2024 5:06 PM [facility] MONOCYTES 5.3 3.0 - 13.0 % 10/31/2024 5:06 PM [facility] EOSINOPHILS 1.3 0.0 - 8.0 % 10/31/2024 5:06 PM [facility] BASOPHILS 0.4 0.0 - 1.0 % 10/31/2024 5:06 PM MICROFICHE CAMERA OPERATOR [facility] ABSOLUTE NEUTROPHILS 4.96 1.40 - 5.30 10(3)/mcL 10/31/2024 5:06 PM MICROFICHE CAMERA OPERATOR [facility] ABSOLUTE LYMPHOCYTES 2.23 0.90 - 3.30 10(3)/mcL 10/31/2024 5:06 PM MICROFICHE CAMERA OPERATOR [facility] ABSOLUTE MONOCYTES 0.41 0.10 - 0.90 10(3)/[facility] 10/31/2024 5:06 PM MICROFICHE CAMERA OPERATOR [facility] ABSOLUTE EOSINOPHIL 0.10 0.00 - 0.50 10(3)/[facility] 10/31/2024 5:06 PM MICROFICHE CAMERA OPERATOR [facility] ABSOLUTE BASOPHILS 0.03 0.00 - 0.10 10(3)/[facility] 10/31/2024 5:06 PM MICROFICHE CAMERA OPERATOR [facility] NRBC PER 100 WBC 0 10/31/19 5:06 PM MICROFICHE CAMERA OPERATOR [facility] Blood Venipuncture / Unknown 10/31/2024 4:52 PM MICROFICHE CAMERA OPERATOR 10/31/2024 5:00 PM MICROFICHE CAMERA OPERATOR us Yuri Simpson DO HEMATOLOGY ORDERABLES F inal Result [facility] [address] [place] [address] * D-Dimer (10/31/2024 4:52 PM MICROFICHE CAMERA OPERATOR) D DIMER <=0.27 <0.50 mcg/mL FEU 10/31/2024 5:22 PM MICROFICHE CAMERA OPERATOR [facility] Blood Venipuncture / Unknown 10/31/2024 4:52 PM MICROFICHE CAMERA OPERATOR 10/31/2024 5:00 PM MICROFICHE CAMERA OPERATOR Narrative [facility] - 10/31/2024 5:22 PM MICROFICHE CAMERA OPERATOR The FDA has approved this method to exclude the diagnosis of DVT and/or PE at the cutoff value of <0.50 mcg/mL FEU. us Columba Mares REEL TENDER, SVETLANA HEMATOLOGY ORDERAB LES Final Result [facility] [address] [place] [address] * (ABNORMAL) Comprehensive Metabolic Panel (Cmp) [id number] (10/31/2024 4:52 PM MICROFICHE CAMERA OPERATOR) SODIUM 140 136 - 145 mmol/L 10/31/2024 5:25 PM MICROFICHE CAMERA OPERATOR [facility] POTASSIUM 3.0(L) 3.5 - 5.1 mmol/L 10/31/2024 5:25 PM MICROFICHE CAMERA OPERATOR [facility] CHLORIDE 106 98 - 107 mmol/L 10/31/2024 5:25 PM [facility] CO2, VENOUS 21(L) 22 - 30 mmol/L 10/31/2024 5:25 PM [facility] ANION GAP 16.0 <18.0 mmol/L 10/31/2024 5:25 PM MICROFICHE CAMERA OPERATOR [facility] GLUCOSE 135(H) 70 - 99 mg/dL 10/31/2024 5:25 PM MICROFICHE CAMERA OPERATOR [facility] BUN 14 9 - 21 mg/dL 10/31/2024 5:25 PM [facility] CREATININE, BLOOD 1.25 0.70 - 1.30 mg/dL 10/31/2024 5:25 PM [facility] BUN/CREATININE RATIO 11(L) 12 - 20 ratio 10/31/2024 5:25 PM MICROFICHE CAMERA OPERATOR [facility] TOTAL PROTEIN 7.9 6.0 - 8.0 g/dL 10/31/2024 5:25 PM MICROFICHE CAMERA OPERATOR [facility] ALBUMIN 4.6 3.5 - 5.0 g/dL 10/31/2024 5:25 PM [facility] A/G RATIO 1.4 1.0 - 2.2 10/31/2024 5:25 PM [facility] CALCIUM 10.2 8.7 - 10.5 mg/dL 10/31/2024 5:25 PM [facility] T BILI 0.7 0.2 - 1.2 mg/dL 10/31/2024 5:25 PM MICROFICHE CAMERA OPERATOR [facility] SGOT (AST) 28 <43 U/L 10/31/2024 5:25 PM MICROFICHE CAMERA OPERATOR [facility] SGPT (ALT) 49 <56 U/L 10/31/2024 5:25 PM MICROFICHE CAMERA OPERATOR [facility] ALKALINE PHOSPHATASE 62 40 - 150 U/L 10/31/2024 5:25 PM MICROFICHE CAMERA OPERATOR [facility] GFR, ESTIMATED >60 >=60 10/31/2024 5:25 PM MICROFICHE CAMERA OPERATOR [facility] Comment: Creatinine Clearance is the preferred criteria for selecting drug dose adjustments in renally impaired patients. The GFR is provided as additional pertinent clinical information. GFR is reported in mL/min/1.73 sq m. Calculation based on the Chronic Kidney Disease Epidemiology Collaboration (CKD- EPI) equation refit without adjustment for race. GFR, EST. >60 >=60 025 5:25 PM MICROFICHE CAMERA OPERATOR [facility] GFR, EST. NONAFRICAN >60 >=60 10/31/2024 5:25 PM MICROFICHE CAMERA OPERATOR [facility] Blood Venipuncture / Unknown 10/31/2024 4:52 PM MICROFICHE CAMERA OPERATOR 10/31/2024 5:00 PM MICROFICHE CAMERA OPERATOR us Yuri Simpson DO CHEMISTRY ORDERABLES Fi nal Result [facility] [address] [place] [address] * B-Type Natriuretic Peptide (BNP) (10/31/2024 4:52 PM MICROFICHE CAMERA OPERATOR) B TYPE NATRIURETIC PEPTIDE <15 <100 pg/mL 10/31/2024 5:45 PM MICROFICHE CAMERA OPERATOR [facility] Blood Venipuncture / Unknown 10/31/2024 4:52 PM MICROFICHE CAMERA OPERATOR 10/31/2024 5:00 PM MICROFICHE CAMERA OPERATOR us Columba Mares REEL TENDER, LEVEL VIAL SETTER CHEMISTRY ORDERABL ES Final Result [facility] [address] [place] [address] from Last 3 Months Insurance [facility] Care Teams Synchronizer Relationship Specialty Start Date End Date Ronak Kelly PAC [address] [place] [address] PCP - General Physician Automotive Glass Technician 02/20/21
--- OUTSIDE RECORDS SUMMARY | 2024-12-20 22:17 | XMS_ITS | Encounter Summary ---
Author Organization [facility] [employer] Care Team Providers Care Matrix Drier Tender Name Role Phone Ronak Kelly Primary Care Provider [phone] Encounter Details Date Type Department Care Team (Latest Contact Info) Description 12/20/2024 Travel Social History Tobacco Use Types Packs/Day Years Used Date Smoking Tobacco: Never Smokeless Tobacco: Never Chew Comments:only chews once in a while Alcohol [...] file Not on file Not on file documented as of this encounter Plan of Treatment Not on file documented as of this encounter Visit Diagnoses Not on filedocumented in this encounter Additional Health Concerns Assessment Noted Time PHQ-9 Depression Total Score: 0 07/15/20 18 8:00 AM CORRECTIONS OFFICER documented as of this encounter Care Teams Matrix Drier Tender Relationship Specialty Start Date End Date Ronak Kelly PAC [address] [place] [id number] PCP - General Physician Concrete Finisher Apprentice 02/20/21 documented as of this encounter
--- OUTSIDE RECORDS SUMMARY | 2024-12-20 22:17 | XMS_ITS | Encounter Summary ---
Author Organization [facility] Address [address] [place] [address] Phone Care Team Providers Care Vp Project Name Role Phone Ronak Kelly Primary Care Provider [phone] Reason for Visit * Reason Comments Back Pain Encounter Details Date Type Department Care Team (Late st Contact Info) Description 12/20/2024 9:16 PM CDT - 12/20/2024 9:38 PM CDT Emergency [facility] Emergency [address] [place] [address] Discharge Disposition: LWBS Social History Tobacco Use Types Packs/Day Years [...] on file documented as of this encounter Last Filed Vital Signs Vital Sign Reading [...] Mass Index 34.67 12/20/2024 9:14 PM CDT documented in this encounter Medications at Time of Discharge allopurinol (ZYLOPRIM) 100 MG Tablet Take 1 Tablet by mouth daily. 30 Tablet 02/21/2021 fluticasone (FLONASE) 50 MCG/ACT SuspensionIndica tions:Nasal congestion 2 Sprays by Nasal route daily. 1-2 sprays each nostril daily for nasal congestion and allergies. 1 Bottle 2 11/19/2018 HYDROcodone-acet aminophen ([place]) 7.5-325 MG TabletIndication s:Chronic pain of left ankle Take 1 Tablet by mouth every 8 hours as needed for Severe pain. 12 Tablet 06/02/2023 documented as of this encounter ED Notes * Sisi Orellana RN - 12/20/2024 9:35 PM CDT Pt telling registration the he will not be seeing a nurse practitioner . This RN asked pt what if there were any issues. Pt stating that he refuses to be seen by an MERCHANDISE BUYER, this RN told pt that the MERCHANDISE BUYER can see him immediately but it will be longer for the MD to see him due to acuity. Pt states Show methe exit! I knew this place was a joke. I ain't seeing no fucking nurse practitioner . ERP made aware. * Tiana Purcell RN - 12/20/2024 9:15 PM CDT Pt ambulatory to triage with c/o lower back pain that radiates through both legs. States he had a spinal fusion yesterday and was not sent home with any medications for pain relief. documented in this encounter Plan of Treatment Not on file documented as of this encounter Visit Diagnoses Not on filedocumented in this encounter Additional Health Concerns Assessment Noted Time PHQ-9 Depression Total Score: 0 07/15/20 18 8:00 AM BUILDING CLEANING SUPERVISOR documented as of this encounter Care Teams Vp Project Relationship Specialty Start Date End Date Ronak Kelly, [address]RA [address] [place] [address] PCP - General Physician Pharmaceutical Sales 02/20/21 documented as of this encounter
[2024-12-20 22:19] VITALS: BP 143/93; PULSE 75; RESP 18; TEMP 36.4; O2SAT 100
--- NOTE | 2024-12-20 22:58 | ED_ITS ---
HPI - Back Pain/Injury General Chief Complaint: Back Pain/Injury Stated Complaint: back/hip pain after infusion yesterday Time Seen by Provider: 12/20/24 22:58 Source: patient Mode of arrival: ambulatory Limitations: no limitations History of Present Illness HPI Narrative: This is a 34-year-old male who presents to the ED for chief complaint of low back pain s/p spine injection done yesterday at the imaging center. Patient states that he had similar injection about a month ago and did not have such pain at that time. His physician stated that he should not have this much pain so patient came to the ER. Patient is unsure what the procedure was, I just know it was and injection. Denies extremity numbness or weakness. Denies bowel or bladder dysfunction. Denies fevers, chills, nausea, vomiting. Related Data Home Medications ?Medication ?Instructions ?Recorded ?Confirmed ?Last Taken ?Type allopurinol 200 mg tablet 200 mg PO DAILY 09/15/23 09/15/23 Unknown History colchicine 0.6 mg tablet 0.6 mg PO DAILY 09/15/23 09/15/23 Unknown History indomethacin 50 mg capsule 50 mg PO TID 09/15/23 09/15/23 Unknown History lisinopril 20 mg tablet mg 04/15/24 Unknown History Allergies Allergy/AdvReac Type Severity Reaction Status Date / Time No Known Allergies Allergy Verified 12/20/24 22:16 Review of Systems 2 Review of Systems: All systems as dictated in HPI PENDING SALE TO [facility] Past Medical History Medical History Asthma as child Gout Pain, chronic recent insertion of pain stimulator Surgical History Surgical History History of foot surgery left Family History Family History Other Diabetes mellitus Heart disease Hypertension Social History Social History Smoking status: Never smoker Alcohol intake: current Exam 2 Narrative: GENERAL: Well-appearing, well-nourished, and in no acute distress. HEAD: Normocephalic, atraumatic. EYES: PERRLA and EOMI. ENT: Nares clear, no rhinorrhea or epistaxis. Mucous membranes moist. Oropharynx without tonsillar hypertrophy exudate or other lesions. NECK: Supple. No adenopathy or masses. CHEST: No respiratory distress. Clear to auscultation. No wheezes rales or rhonchi HEART: Regular rate and rhythm. No murmur heard. Normal peripheral pulses. ABDOMEN: Soft, nontender, nondistended, normal active bowel sounds. MSK: Mild midline tenderness to the thoracic and lumbar spine. Normal range of motion. No edema. Ambulatory without difficulty. SKIN: Warm, dry, no rash. NEURO: Alert and oriented x4. No focal deficits. 5/5 strength and sensation to the upper and lower extremities. No saddle anesthesia. PSYCH: Normal mood and affect. Course Vital Signs Vital signs: Vital Signs Temperature 97.5 F L 12/20/24 22:19 Pulse Rate 75 12/20/24 22:19 Respiratory Rate 18 12/20/24 22:19 Blood Pressure 143/93 H 12/20/24 22:19 Pulse Oximetry 100 12/20/24 22:19 Oxygen Delivery Room Air 12/20/24 22:19 Temperature 97.5 F L 12/20/24 22:19 Pulse Rate 75 12/20/24 22:19 Respiratory Rate 18 12/20/24 22:19 Blood Pressure 143/93 H 12/20/24 22:19 Pulse Oximetry 100 12/20/24 22:19 Oxygen Delivery Room Air 12/20/24 22:19 MDM - Back Pain/Injury MDM Narrative Medical decision making narrative: 34-year-old male who presents to the ED for acute on chronic back pain after receiving injection with pain management yesterday. Vitals are normal. Exam is overall benign. No bowel or bladder dysfunction or other red flag signs for back pain today. Main concern would be postprocedural hemorrhage. CT lumbar: IMPRESSION: No acute osseous abnormality of the thoracic and lumbar spine. Edema in the subcutaneous tissues opposite L2 and L5. This may be postinjection or due to infection. Clinical correlation advised.. He was given Toradol initially with minimal relief of pain. He was then given shot of Dilaudid which did help. Low suspicion for infection today as this would be too soon for postprocedural infection and his vital signs are normal. He feels comfortable with discharge home. He will be given short course of [place] for breakthrough pain and instructed to take Tylenol every 6 hours for baseline pain control. And stands that he needs to follow up with his pain management physician tomorrow. Referral for Neurosurgery will be given as well for his chronic back pain. Pt will be discharged in stable condition. Return precautions given and supportive measures discussed. Lab Data 12/20/24 23:15 12/20/24 23:15 Labs: Lab Results 12/20/24 Range/Units 23:15 WBC 12.1 H (4.5-10.0) K/mm3 RBC 4.75 (4.6-6.20) M/mm3 Hgb 14.3 (14.0-18.0) g/dL Hct 41.9 L (42.0-52.0) % MCV 88.2 (80-100) fl MCH 30.1 (26-34) pg MCHC 34.1 (32-36) g/dl RDW 13.7 (11.5-14.5) % Plt Count 283 (150-375) k/mm3 MPV 9.5 (7.4-10.4) fl Immature Gran % (Auto) 0.5 (0-0.5) % Neut % (Auto) 80.4 H (45.5-73.1) % Lymph % (Auto) 14.8 L (18.3-44.2) % Union % (Auto) 3.9 (2.6-8.5) % Eos % (Auto) 0.2 (0-4.4) % Baso % (Auto) 0.2 (0.2-1.2) % Lymph # (Auto) 1.79 (0.9-3.2) K/mm3 Union # (Auto) 0.5 (0.1-0.6) K/mm3 Eos # (Auto) 0.0 (0-0.3) K/mm3 Baso # (Auto) 0.0 (0.0-0.1) K/mm3 Abs Immat Gran (auto) 0.06 H (0.00-0.031) K/mm3 Absolute Neuts (auto) 9.7 H (1.3-6.7) K/mm3 Absolute Nucleated RBC 0.000 (0.0-0.012) K/mm3 Nucleated RBC % 0.0 (0.0-0.2) % Sodium 139 (137-145) mmol/L Potassium 3.9 (3.4-5.0) mmol/L Chloride 106 (98-107) mmol/L Carbon Dioxide 21 L (22-30) mmol/L Anion Gap 12 (4-12) mmol/L BUN 12 (9-20) mg/dL Creatinine 0.82 (0.7-1.3) mg/dL Estim Creat Clear Calc 160 ml/min Estimated GFR > 60 (59 - ) Glucose 224 H (65-110) mg/dL Calcium 8.7 (8.4-10.2) mg/dL Total Bilirubin 0.3 (0.2-1.3) mg/dL AST 23 (17-59) U/L ALT 34 (6-50) U/L Alkaline Phosphatase 56 (38-126) U/L Total Protein 7.0 (6.3-8.2) g/dL Albumin 4.4 (3.5-5.1) g/dL Discharge Plan Discharge Clinical Impression: Back pain Qualifiers: Back pain location: low back pain Chronicity: chronic Back pain laterality: b ilateral Sciatica presence: without sciatica Qualified Code(s): M54.5 - Low back pain Patient Disposition: Home Condition: Stable Instructions: Antibiotic Form Additional Instructions: Please follow-up with pain management physician tomorrow and contact Neurosurgery for additional evaluation. If you have any new or worsening symptoms please return to the ER for further evaluation. Patient Language: Luxembourger Prescriptions: New hydrocodone-acetaminophen 5-325 mg tablet 1 tablet PO Q8H PRN (Reason: pain) Qty: 7 0RF No Action indomethacin 50 mg capsule 50 mg PO TID colchicine 0.6 mg Tablet 0.6 mg PO DAILY allopurinol 200 mg Tablet 200 mg PO DAILY lisinopril 20 mg tablet ondansetron 4 mg tablet,disintegrating 4 mg PO Q8H PRN (Reason: nausea and vomiting) Qty: 10 0RF Follow-up/Referrals: Yolanda Harrsi MD [Physician] - Robin,THAO Stafford [Primary Care Provider] - Time of Disposition: 01:15
--- OUTSIDE RECORDS SUMMARY | 2024-12-20 23:07 | XMS_ITS | Encounter Summary ---
Author Organization [facility] Address [address] [place] [address] Phone Care Team Providers Care Raw Finish Mill Operator Name Role Phone Ronak Kelly Primary Care Provider [phone] Reason for Visit * Reason Comments Back Pain Encounter Details Date Type Department Care Team (Late st Contact Info) Description 12/20/2024 9:16 PM CDT - 12/20/2024 9:38 PM CDT Emergency [facility] Emergency [address] [place] [address] Discharge Disposition: LWBS Social History Tobacco Use [...] allergies. 1 Bottle 2 11/19/2018 HYDROcodone-acet aminophen ([place]) 7.5-325 MG TabletIndication s:Chronic pain of left [...] he refuses to be seen by an DEGREASER, this RN told pt that the DEGREASER can see him immediately but it will [...] Total Score: 0 07/15/20 18 8:00 AM BOBBIN HANDLER documented as of this encounter Care Teams Raw Finish Mill Operator Relationship Specialty Start Date End Date Ronak Kelly, KYRA [address] [place] [address] PCP - General Physician Supervisor Hairspring Fabrication 02/20/21 documented as of this encounter
--- OUTSIDE RECORDS SUMMARY | 2024-12-20 23:07 | XMS_ITS | Clinical Summary ---
Author Organization [facility] Address [address] [place] [address] Care Team Providers Care Internal Combustion Engine Assembler Name Role Phone Ronak Kelly Primary Care Provider [phone] Allergies No known active allergies Medications colchicine [...] cord stimulator 02/25/20 23 No diagnosis on [place] I 12/09/2022 Other chronic pain 12/09/2022 Pain [...] Department Care Team Description 12/20/2024 Results Follow-Up [facility] Pulmonary at [address] [phone] Yamil Vance MD 11/29/2024 10:58 AM CDT - 11/29/2024 11:59 PM CDT Hospital Encounter [facility] Respiratory [address] [place] [address] SOB (shortness of breath) Discharge Disposition: Discharge to home or self care 11/08/2024 Telephone [facility] Pulmonary at [address] [phone] Katie Monroy LPN 11/07/2024 Telephone [facility] Pulmonary at [address] [phone] Inez Person LPN testing 11/01/2024 10:00 AM EMS COORDINATOR Office Visit [facility] Pulmonary at [address] [phone] Yamil Vance MD Panic attacks (Primary Dx); Hyperventilation; SOB (shortness of breath) 10/28/2024 3:49 PM EMS COORDINATOR - 10/28/2024 11:59 PM EMS COORDINATOR Hospital Encounter [facility] Center [address] [place] [address] Lumbar radicular pain Discharge Disposition: Discharge to [...] on file Legal Sex Male 11:36 AM EMS COORDINATOR Gender Identity Not on file Sexual Orientation Not on file Obstetrics History Last Filed Vital Signs Vital Sign Reading Time Taken Comments Blood Pressure 120/70 11/01/2024 9:52 AM EMS COORDINATOR Pulse 90 11/01/2024 9:52 AM EMS COORDINATOR Temperature 35.6 C (96.1 F) 11/01/2024 9:52 AM EMS COORDINATOR Respiratory Rate 18 11/01/2024 9:52 AM EMS COORDINATOR Oxygen Saturation 99% 11/01/2024 9:52 AM EMS COORDINATOR Inhaled Oxygen Concentration - - Weight 127.1 kg (280 lb 1.6 oz) 11/01/2024 9:52 AM EMS COORDINATOR Height 188 cm (6' 2 ) 11/01/2024 9:52 AM EMS COORDINATOR Body Mass Index 35.96 11/01/2024 9:52 AM EMS COORDINATOR Plan of Treatment Health Maintenance Due Date [...] this topic Medical Devices Implanted Type Area Tile Trimmer Device Identifier Shelf Expiration Date Model / Serial / Lot [employer] Axium Slimtip 1mm 50cm 4 Electrode Lead Front Load Delivery 5mm [id number] - [id number] - [id number] Implanted:Qty: 1 on 02/16/2023 by Damon Dukes MD at [facility] N/A: Back [employer] 09/25/2024 [id number] / [id number] / [employer] Axium Slimtip 1mm 50cm 4 Electrode Lead Front Load Delivery 5mm [id number] - [id number] - [id number] Implanted:Qty: 1 on 02/16/2023 by Damon Dukes MD at [facility] N/A: Back [employer] 09/25/2024 [id number] / [id number] / [employer] Proclaim Pulse Generator Neurostimulator Dorsal Root Ganglion 3664 Contrlsys - [id number] - [id number] Implanted:Qty: 1 on 02/16/2023 by Damon Dukes MD at [facility] N/A: Back [employer] 07/15/2024 [id number] / [id number] / [employer] Neurostimulator Implantable Chronic Pain Rs2 [id number] - [id number] - [id number] Implanted:Qty: 1 on 08/20/2023 by Damon Dukes MD at [facility] Right: Back [employer] 06/04/2024 [id number] / [id number] / [employer] Vectris 5mm 60cm 1x8 Electrode Mri Lead Neurostimulator [id number] - [id number] Implanted:Qty: 1 on 08/20/2023 by Damon Dukes MD at [facility] Right: Back [employer] 07/02/2027 [id number] / / [id number] [employer] Vectris 5mm 60cm 1x8 Electrode Mri Lead Neurostimulator [id number] - [id number] Implanted:Qty: 1 on 08/20/2023 by Damon Dukes MD at [facility] Right: Back [employer] 07/07/2027 [id number] / / [id number] [employer] Envelope Absrb 2.7x2.5in Antibacterial Tyrx Medium Strl [id number] - [id number] Implanted:Qty: 1 on 08/20/2023 by Damon Dukes MD at [facility] Right: Back [employer] 05/09/2024 [id number] / / [id number] Procedures Procedure Name Priority Date/Time Associated Diagnosis Comments PULMONARY FUNCTION TEST (PFT) Routine 11/29/2024 12:09 PM CDT SOB (shortness of breath) MRI LUMBAR SPINE WO CONTRAST Schedule Routine, Read Routine (OP Routine) 10/28/2024 4:28 PM EMS COORDINATOR Lumbar radicular pain from Last 3 Months [...] Lumbar Spine WO Contrast (10/28/2024 4:28 PM EMS COORDINATOR) Anatomical Region Laterality Modality Spine N/A Magnetic Resonan ce 10/30/2024 7:27 AM EMS COORDINATOR Narrative 10/30/2024 7:36 AM EMS COORDINATOR EXAM DESCRIPTION: MRI LUMBAR SPINE WO CONTRAST [...] Mohamud Langley M.D. JOSEPH: JOSEPH Report ID: [id number] Reading Location: [place] [address] Procedure Note Mohamud Langley MD - 10/30/2024 [...] Mohamud Langley M.D. JOSEPH: JOSEPH Report ID: [id number] Reading Location: [place] [address] Cheryle Duran TUTORIAL LABORATORY SUPERVISOR IMG MRI PROCEDURES Final Re sult from Last 3 Months Insurance [facility] Care Teams Internal Combustion Engine Assembler Relationship Specialty Start Date End Date Ronak Kelly PA [address] [place] [address] PCP - General Family Practice 10/23/21
--- OUTSIDE RECORDS SUMMARY | 2024-12-20 23:07 | XMS_ITS | Clinical Summary ---
Author Organization [facility] Facility Address [address] [address] Care Team Providers Care Lyric Writer Name Role Phone Unavailable Primary Care Provider [...]
--- OUTSIDE RECORDS SUMMARY | 2024-12-20 23:07 | XMS_ITS | Clinical Summary ---
Author Organization [facility] Address [address] [place] [address] Phone Care Team Providers Care Saddle Tree Stitcher Name Role Phone Ronak Kelly Primary Care Provider [phone] Allergies No known active allergies Medications fluticasone (FLONASE) 50 MCG/ACT SuspensionIndic ations:Nasal congestion 2 Sprays by Nasal route daily. 1-2 sprays each nostril daily for nasal congestion and allergies. 1 Bottle 2 9 Active Additional Information Patient not taking.Reported on 09/17/2021 allopurinol (ZYLOPRIM) 100 MG Tablet Take 1 Tablet by mouth daily. 30 Tablet 1 Active HYDROcodone-mike taminophen (Verona) 7.5-325 MG TabletIndicatio ns:Chronic pain of left ankle Take 1 Tablet by mouth every 8 hours as needed for Severe pain. 12 Tablet 3 Active Active Problems Problem Noted Date Diagnosed Date Chronic neck pain 11/19/2018 Chronic low back pain 07/15/2018 Encounters Date Type Department Care Team Description 12/20/2024 9:16 PM CDT - 12/20/2024 9:38 PM CDT Emergency [facility] Emergency [address] [place] [address] Discharge Disposition: LWBS 12/20/2024 Travel 10/31/2024 4:34 PM STRIP TANK TENDER - 10/31/2024 5:54 PM STRIP TANK TENDER Emergency [facility] Emergency [address] [place] [address] Columba Mares, RADIO FREQUENCY DESIGN ENGINEER, SUPERVISOR SHEET MANUFACTURING Hypokalemia Discharge Disposition: Left Against Medical Advice [...] CHEST 2 VIEWS STAT 10/31/2024 5:08 PM STRIP TANK TENDER GOLD TOP TUBE STAT 10/31/2024 4:52 PM STRIP TANK TENDER CBC WITH AUTO DIFFERENTIAL STAT 10/31/2024 4:52 PM STRIP TANK TENDER EXTRA TUBES STAT 10/31/2024 4:52 PM STRIP TANK TENDER B-TYPE NATRIURETIC PEPTIDE (BNP) STAT 10/31/2024 4:52 PM STRIP TANK TENDER D-DIMER STAT 10/31/2024 4:52 PM STRIP TANK TENDER TROPONIN I, HIGH SENSITIVITY (HSTRP) STAT 10/31/2024 4:52 PM STRIP TANK TENDER COMPLETE BLOOD COUNT (CBC) WITH DIFF STAT 10/31/2024 4:52 PM STRIP TANK TENDER CMP (COMPREHENSIVE METABOLIC PANEL) STAT 10/31/2024 4:52 PM STRIP TANK TENDER from Last 3 Months Results * XR CHEST 2 VIEWS (10/31/2024 5:08 PM STRIP TANK TENDER) Anatomical Region Laterality Modality Chest N/A Digital Radiogra phy 10/31/2024 5:15 PM STRIP TANK TENDER Impressions 10/31/2024 5:18 PM STRIP TANK TENDER IMPRESSION: No acute cardiopulmonary abnormality. Narrative 10/31/2024 5:18 PM STRIP TANK TENDER EXAM DESCRIPTION: XR CHEST 2 VIEWS REASON FOR STUDY: pt c/o intermittent chest pain and shortness of breath for at least a year. States he was told by my quack of a signs cleaner that I had asthma. TECHNIQUE: Frontal and [...] Jeronimo Diaz M.D. MF: DANICA Report ID: [id number] Reading Location: [id number] Procedure Note Jeronimo Diaz, DO - 10/31/2024 EXAM DESCRIPTION: XR CHEST 2 VIEWS REASON FOR STUDY: pt c/o intermittent chest pain and shortness of breath for at least a year. States he was told by my quack of a signs cleaner that I had asthma. TECHNIQUE: Frontal and lateral radiographic view(s) of the chest. COMPARISON: Chest CT dated 08/01/2024. FINDINGS: LUNGS: No focal opacity, pleural effusion, or pneumothorax. HEART/MEDIASTINUM: Cardiac silhouette normal in size. Mediastinal and hilar contours appear normal. LINES/TUBES: None. BONES: No acute osseous abnormality. THIS IS AN ELECTRONICALLY VERIFIED FINAL REPORT 10/31/2024 5:15 PM - Electronically signed by Jeornimo Diaz M.D. MF: DANICA Report ID: [id number] Reading Location: [place] [address] IMPRESSION: No acute cardiopulmonary abnormality. Columba Mares APRN, CNP IMG DIAGNOSTIC ORD ERABLES Final Result * TROPONIN I, HIGH SENSITIVITY (HSTRP) (10/31/2024 4:52 PM STRIP TANK TENDER) [facility] TROPONIN I, HIGH SENSITIVITY- KELLEY 4 <=35 ng/L 10/31/2024 5:29 PM STRIP TANK TENDER [facility] Comment: High-sensitivity troponin I results are reported in ng/L making the result appear to be 1,000 times higher than the contemporary troponin I value which is reported in ng/ml. Results from [place]. Blood Venipuncture / Unknown 10/31/2024 4:52 PM STRIP TANK TENDER 10/31/2024 5:00 PM STRIP TANK TENDER Yuri Simpson DO CHEMISTRY ORDERABLES Fi nal Result Performing Organization Address City/[facility]/ZIP Co de Phone Number [facility] [address] [place] [address] * Gold Top Tube (10/31/2024 4:52 PM STRIP TANK TENDER) Blood No Phlebotomy Charged / Unknown 10/31/2024 4:52 PM STRIP TANK TENDER 10/31/2024 5:02 PM STRIP TANK TENDER Columba Mares APRN, CNP CHEMISTRY ORDERABL ES Final Result Performing Organization Address City/[facility]/ZIP Co de Phone Number [facility] [address] [place] [address] * (ABNORMAL) CBC with Auto Differential (10/31/2024 4:52 PM [facility]) WBC 7.73 4.00 - 12.00 10(3)/mcL 10/31/2024 5:06 PM [facility] RBC 5.48 4.40 - 5.80 10(6)/mcL 10/31/2024 5:06 PM [facility] HEMOGLOBIN (HGB) 16.6(H) 13.0 - 16.5 g/dL 10/31/2024 5:06 PM [facility] HEMATOCRIT (HCT) 45.5 38.0 - 50.0 % 10/31/2024 5:06 PM [facility] MCV 83.0 82.0 - 96.0 fL 10/31/2024 5:06 PM [facility] MCH 30.3 26.0 - 32.0 pg 10/31/2024 5:06 PM [facility] MCHC 36.5(H) 31.0 - 36.0 g/dL 10/31/2024 5:06 PM [facility] PLATELET COUNT 333 140 - 440 10(3)/mcL 10/31/2024 5:06 PM [facility] RDW 12.8 11.8 - 15.5 % 10/31/2024 5:06 PM [facility] MPV 9.4 8.0 - 12.6 fL 10/31/2024 5:06 PM [facility] NEUTROPHILS 64.2 40.0 - 68.0 % 10/31/2024 5:06 PM [facility] LYMPHOCYTES 28.8 19.0 - 49.0 % 10/31/2024 5:06 PM [facility] MONOCYTES 5.3 3.0 - 13.0 % 10/31/2024 5:06 PM [facility] EOSINOPHILS 1.3 0.0 - 8.0 % 10/31/2024 5:06 PM [facility] BASOPHILS 0.4 0.0 - 1.0 % 10/31/2024 5:06 PM STRIP TANK TENDER [facility] ABSOLUTE NEUTROPHILS 4.96 1.40 - 5.30 10(3)/mcL 10/31/2024 5:06 PM STRIP TANK TENDER [facility] ABSOLUTE LYMPHOCYTES 2.23 0.90 - 3.30 10(3)/mcL 10/31/2024 5:06 PM STRIP TANK TENDER [facility] ABSOLUTE MONOCYTES 0.41 0.10 - 0.90 10(3)/[facility] 10/31/2024 5:06 PM STRIP TANK TENDER [facility] ABSOLUTE EOSINOPHIL 0.10 0.00 - 0.50 10(3)/[facility] 10/31/2024 5:06 PM STRIP TANK TENDER [facility] ABSOLUTE BASOPHILS 0.03 0.00 - 0.10 10(3)/[facility] 10/31/2024 5:06 PM STRIP TANK TENDER [facility] NRBC PER 100 WBC 0 10/31/19 5:06 PM STRIP TANK TENDER [facility] Blood Venipuncture / Unknown 10/31/2024 4:52 PM STRIP TANK TENDER 10/31/2024 5:00 PM STRIP TANK TENDER us Yuri Simpson DO HEMATOLOGY ORDERABLES F inal Result [facility] [address] [place] [address] * D-Dimer (10/31/2024 4:52 PM STRIP TANK TENDER) D DIMER <=0.27 <0.50 mcg/mL FEU 10/31/2024 5:22 PM STRIP TANK TENDER [facility] Blood Venipuncture / Unknown 10/31/2024 4:52 PM STRIP TANK TENDER 10/31/2024 5:00 PM STRIP TANK TENDER Narrative [facility] - 10/31/2024 5:22 PM STRIP TANK TENDER The FDA has approved this method to exclude the diagnosis of DVT and/or PE at the cutoff value of <0.50 mcg/mL FEU. us Columba Mares RADIO FREQUENCY DESIGN ENGINEER, SVETLANA HEMATOLOGY ORDERAB LES Final Result [facility] [address] [place] [address] * (ABNORMAL) Comprehensive Metabolic Panel (Cmp) [id number] (10/31/2024 4:52 PM STRIP TANK TENDER) SODIUM 140 136 - 145 mmol/L 10/31/2024 5:25 PM STRIP TANK TENDER [facility] POTASSIUM 3.0(L) 3.5 - 5.1 mmol/L 10/31/2024 5:25 PM STRIP TANK TENDER [facility] CHLORIDE 106 98 - 107 mmol/L 10/31/2024 5:25 PM [facility] CO2, VENOUS 21(L) 22 - 30 mmol/L 10/31/2024 5:25 PM [facility] ANION GAP 16.0 <18.0 mmol/L 10/31/2024 5:25 PM STRIP TANK TENDER [facility] GLUCOSE 135(H) 70 - 99 mg/dL 10/31/2024 5:25 PM STRIP TANK TENDER [facility] BUN 14 9 - 21 mg/dL 10/31/2024 5:25 PM [facility] CREATININE, BLOOD 1.25 0.70 - 1.30 mg/dL 10/31/2024 5:25 PM [facility] BUN/CREATININE RATIO 11(L) 12 - 20 ratio 10/31/2024 5:25 PM STRIP TANK TENDER [facility] TOTAL PROTEIN 7.9 6.0 - 8.0 g/dL 10/31/2024 5:25 PM STRIP TANK TENDER [facility] ALBUMIN 4.6 3.5 - 5.0 g/dL 10/31/2024 5:25 PM [facility] A/G RATIO 1.4 1.0 - 2.2 10/31/2024 5:25 PM [facility] CALCIUM 10.2 8.7 - 10.5 mg/dL 10/31/2024 5:25 PM [facility] T BILI 0.7 0.2 - 1.2 mg/dL 10/31/2024 5:25 PM STRIP TANK TENDER [facility] SGOT (AST) 28 <43 U/L 10/31/2024 5:25 PM STRIP TANK TENDER [facility] SGPT (ALT) 49 <56 U/L 10/31/2024 5:25 PM STRIP TANK TENDER [facility] ALKALINE PHOSPHATASE 62 40 - 150 U/L 10/31/2024 5:25 PM STRIP TANK TENDER [facility] GFR, ESTIMATED >60 >=60 10/31/2024 5:25 PM STRIP TANK TENDER [facility] Comment: Creatinine Clearance is the preferred criteria for selecting drug dose adjustments in renally impaired patients. The GFR is provided as additional pertinent clinical information. GFR is reported in mL/min/1.73 sq m. Calculation based on the Chronic Kidney Disease Epidemiology Collaboration (CKD- EPI) equation refit without adjustment for race. GFR, EST. >60 >=60 025 5:25 PM STRIP TANK TENDER [facility] GFR, EST. NONAFRICAN >60 >=60 10/31/2024 5:25 PM STRIP TANK TENDER [facility] Blood Venipuncture / Unknown 10/31/2024 4:52 PM STRIP TANK TENDER 10/31/2024 5:00 PM STRIP TANK TENDER us Yuri Simpson DO CHEMISTRY ORDERABLES Fi nal Result [facility] [address] [place] [address] * B-Type Natriuretic Peptide (BNP) (10/31/2024 4:52 PM STRIP TANK TENDER) B TYPE NATRIURETIC PEPTIDE <15 <100 pg/mL 10/31/2024 5:45 PM STRIP TANK TENDER [facility] Blood Venipuncture / Unknown 10/31/2024 4:52 PM STRIP TANK TENDER 10/31/2024 5:00 PM STRIP TANK TENDER us Columba Mares RADIO FREQUENCY DESIGN ENGINEER, SUPERVISOR SHEET MANUFACTURING CHEMISTRY ORDERABL ES Final Result [facility] [address] [place] [address] from Last 3 Months Insurance [facility] Care Teams Saddle Tree Stitcher Relationship Specialty Start Date End Date Ronak Kelly PAC [address] [place] [address] PCP - General Physician Manager 02/20/21
--- OUTSIDE RECORDS SUMMARY | 2024-12-20 23:07 | XMS_ITS | Referral Summary ---
Author Organization [facility] Address [address] [place] [address] Care Team Providers Care Coronary Care Unit Nurse Name Role Phone Ronak Kelly Primary Care Provider [phone] Encounters Date Type Department Care Team Description 12/20/2024 Results Follow-Up [facility] Pulmonary at [address] [address] Yamil Vance MD 11/29/2024 10:58 AM CDT - 11/29/2024 11:59 PM CDT Hospital Encounter [facility] Respiratory 1 [place] [address] SOB (shortness of breath) Discharge Disposition: Discharge to home or self care 11/08/2024 Telephone [facility] Pulmonary at [address] [address] Katie Monroy LPN 11/07/2024 Telephone [facility] Pulmonary at [address] [address] Inez Person LPN testing 11/01/2024 10:00 AM INSIDE SALES TERRITORY MANAGER Office Visit [facility] Pulmonary at [address] [address] Yamil Vance MD Panic attacks (Primary Dx); Hyperventilation; SOB (shortness of breath) 10/28/2024 3:49 PM INSIDE SALES TERRITORY MANAGER - 10/28/2024 11:59 PM INSIDE SALES TERRITORY MANAGER Hospital Encounter [facility] Center 1 [place] [address] Lumbar radicular pain Discharge Disposition: Discharge to [...] cord stimulator 02/25/20 23 No diagnosis on Loyal I 12/09/2022 Other chronic pain 12/09/2022 Pain [...] on file Legal Sex Male 11:36 AM INSIDE SALES TERRITORY MANAGER Gender Identity Not on file Sexual Orientation Not on file Last Filed Vital Signs Vital Sign Reading Time Taken Comments Blood Pressure 120/70 11/01/2024 9:52 AM INSIDE SALES TERRITORY MANAGER Pulse 90 11/01/2024 9:52 AM INSIDE SALES TERRITORY MANAGER Temperature 35.6 C (96.1 F) 11/01/2024 9:52 AM INSIDE SALES TERRITORY MANAGER Respiratory Rate 18 11/01/2024 9:52 AM INSIDE SALES TERRITORY MANAGER Oxygen Saturation 99% 11/01/2024 9:52 AM INSIDE SALES TERRITORY MANAGER Inhaled Oxygen Concentration - - Weight 127.1 kg (280 lb 1.6 oz) 11/01/2024 9:52 AM INSIDE SALES TERRITORY MANAGER Height 188 cm (6' 2 ) 11/01/2024 9:52 AM INSIDE SALES TERRITORY MANAGER Body Mass Index 35.96 11/01/2024 9:52 AM INSIDE SALES TERRITORY MANAGER Plan of Treatment Not on file Medical Devices Implanted Type Area Produce Wrapper Device Identifier Shelf Expiration Date Model / Serial / Lot [employer] Axium Slimtip 1mm 50cm 4 Electrode Lead Front Load Delivery 5mm [id number] - [id number] - [id number] Implanted:Qty: 1 on 02/16/2023 by Damon Dukes MD at [facility] N/A: Back [employer] 09/25/2024 [id number] / [id number] / [employer] Axium Slimtip 1mm 50cm 4 Electrode Lead Front Load Delivery 5mm [id number] - [id number] - [id number] Implanted:Qty: 1 on 02/16/2023 by Damon Dukes MD at [facility] N/A: Back [employer] 09/25/2024 [id number] / [id number] / [employer] Proclaim Pulse Generator Neurostimulator Dorsal Root Ganglion 3664 Contrlsys - [id number] - [id number] Implanted:Qty: 1 on 02/16/2023 by Damon Dukes MD at [facility] N/A: Back [employer] 07/15/2024 [id number] / [id number] / [employer] Neurostimulator Implantable Chronic Pain Rs2 [id number] - [id number] - [id number] Implanted:Qty: 1 on 08/20/2023 by Damon Dukes MD at [facility] Right: Back [employer] 06/04/2024 [id number] / [id number] / [employer] Vectris 5mm 60cm 1x8 Electrode Mri Lead Neurostimulator [id number] - [id number] Implanted:Qty: 1 on 08/20/2023 by Damon Dukes MD at [facility] Right: Back [employer] 07/02/2027 [id number] / / [id number] [employer] Vectris 5mm 60cm 1x8 Electrode Mri Lead Neurostimulator [id number] - [id number] Implanted:Qty: 1 on 08/20/2023 by Damon Dukes MD at [facility] Right: Back [employer] 07/07/2027 [id number] / / [id number] [employer] Envelope Absrb 2.7x2.5in Antibacterial Tyrx Medium Strl [id number] - [id number] Implanted:Qty: 1 on 08/20/2023 by Damon Dukes MD at [facility] Right: Back [employer] 05/09/2024 [id number] / / [id number] Procedures Procedure Name Priority Date/Time Associated Diagnosis Comments PULMONARY FUNCTION TEST (PFT) Routine 11/29/2024 12:09 PM CDT SOB (shortness of breath) MRI LUMBAR SPINE WO CONTRAST Schedule Routine, Read Routine (OP Routine) 10/28/2024 4:28 PM INSIDE SALES TERRITORY MANAGER Lumbar radicular pain from Last 3 Months [...] Lumbar Spine WO Contrast (10/28/2024 4:28 PM INSIDE SALES TERRITORY MANAGER) Anatomical Region Laterality Modality Spine N/A Magnetic Resonan ce 10/30/2024 7:27 AM INSIDE SALES TERRITORY MANAGER Narrative 10/30/2024 7:36 AM INSIDE SALES TERRITORY MANAGER EXAM DESCRIPTION: MRI LUMBAR SPINE WO CONTRAST [...] Mohamud Langley M.D. JOSEPH: JOSEPH Report ID: [id number] Reading Location: [place] [address] Procedure Note Mohamud Langley MD - 10/30/2024 [...] Mohamud Langley M.D. JOSEPH: JOSEPH Report ID: [id number] Reading Location: [place] [address] Cheryle Duran NP IMG MRI PROCEDURES Final Re sult from Last 3 Months Insurance [facility] H[facility]/PPO Address: [address] [address] [facility] HMO/PPO Address: [address] [address] [facility] HMO/PPO Address: [place] [id number] [place] [address] Care Teams Coronary Care Unit Nurse Relationship Specialty Start Date End Date Ronak Kelly PA [address] [place] [address] PCP - General Family Practice 10/23/21
--- OUTSIDE RECORDS SUMMARY | 2024-12-20 23:07 | XMS_ITS | Clinical Summary ---
Author Organization [facility] [employer] Address [address] [place] [address] Care Team Providers Care Linux System Admin Name Role Phone Unavailable Primary Care Provider Unavailabl e Source Comments [facility],non-owned Affiliates and Associated Physician Practices is amultiple site organization consisting of ambulatory clinics and hospital sitesin [place], [place], [place] and [place]. This disclosure is being madepursuant to the Care Everywhere program and may not contain all information available regarding this patient. Last updated 18.[facility] [employer] Allergies No known active allergies Medications * [...] on file Legal Sex Male 8:00 AM HELICOPTER OFFICER Gender Identity Not on file Sexual Orientation Not on file Last Filed Vital Signs Vital Sign Reading Time Taken Comments Blood Pressure 138/76 10/18/2020 1:45 PM HELICOPTER OFFICER Pulse 95 10/18/2020 1:45 PM HELICOPTER OFFICER Temperature 36 C (96.8 F) 10/18/2020 1:45 PM HELICOPTER OFFICER Respiratory Rate 20 10/18/2020 1:45 PM HELICOPTER OFFICER Oxygen Saturation 95% 10/05/2020 3:19 PM HELICOPTER OFFICER Inhaled Oxygen Concentration - - Weight 137 kg (302 lb) 10/18/2020 1:45 PM HELICOPTER OFFICER Height 185.4 cm (6' 1 ) 10/18/2020 1:45 PM HELICOPTER OFFICER Body Mass Index 39.84 10/18/2020 1:45 PM HELICOPTER OFFICER Plan of Treatment Health Maintenance Due Date [...] patient's age to complete this topic Insurance [id number] [place] [address]
--- OUTSIDE RECORDS SUMMARY | 2024-12-20 23:07 | XMS_ITS | Encounter Summary ---
Author Organization [facility] Address [address] [place] [address] Care Team Providers Care Top Lifter Name Role Phone Ronak Kelly Primary Care Provider [phone] Encounter Details Date Type Department Care Team ([facility] st Contact Info) Description 12/20/2024 Results Follow-Up [facility] Pulmonary at [address] [place] [address] Yamil Vance MD [address] [place] [address] [address] [place] [address] Social History Tobacco Use Types Packs/Day Years [...] on file Legal Sex Male 11:36 AM RN MOBILE Gender Identity Not on file Sexual Orientation [...] on filedocumented in this encounter Care Teams Top Lifter Relationship Specialty Start Date End Date Ronak Kelly PA [address] [place] [address] PCP - General Family Practice 10/23/21 documented as of this encounter
--- OUTSIDE RECORDS SUMMARY | 2024-12-20 23:07 | XMS_ITS | Encounter Summary ---
Author Organization [facility] [employer] Care Team Providers Care Field Health Officer Name Role Phone Ronak Kelly Primary Care Provider [phone] Encounter Details Date Type Department Care Team [...] Total Score: 0 07/15/20 18 8:00 AM SWITCHBOARD OPERATOR HELPER documented as of this encounter Care Teams Field Health Officer Relationship Specialty Start Date End Date Ronak Kelly PAC [address] [place] [id number] PCP - General Physician Customer Sales Representative 02/20/21 documented as of this encounter
[2024-12-20] MEDS: KETOROLAC 30 MG/ML VIAL (*BKC) IV PUSH (23:13)
[2024-12-20 23:19] LABS: Basophils Percent Auto 0.2 % (0.2-1.2); Eosinophils Percent Auto 0.2 % (0-4.4); Hematocrit 41.9 % (42.0-52.0); Hemoglobin 14.3 g/dL (14.0-18.0); Immature Granulocyte Absolute 0.06 K/mm3 (0.00-0.031); Immature Granulocyte Percent A 0.5 % (0-0.5); Lymphocytes Absolute Auto 1.79 K/mm3 (0.9-3.2); Lymphocytes Percent Auto 14.8 % (18.3-44.2); Mean Corpuscular HGB Conc 34.1 g/dl (32-36); Mean Corpuscular Hemoglobin 30.1 pg (26-34); Mean Corpuscular Volume 88.2 fl (80-100); Mean Platelet Volume 9.5 fl (7.4-10.4); Monocytes Absolute Auto 0.5 K/mm3 (0.1-0.6); Monocytes Percent Auto 3.9 % (2.6-8.5); Neutrophils Absolute Auto 9.7 K/mm3 (1.3-6.7); Neutrophils Percent Auto 80.4 % (45.5-73.1); Platelet Count Result 283 k/mm3 (150-375); Red Blood Count 4.75 M/mm3 (4.6-6.20); Red Cell Distribution Width 13.7 % (11.5-14.5); White Blood Count 12.1 K/mm3 (4.5-10.0)
[2024-12-20 23:30] LABS: Alanine Aminotransferase 34 U/L (6-50); Albumin Level 4.4 g/dL (3.5-5.1); Alkaline Phosphatase 56 U/L (38-126); Anion Gap 12 mmol/L (4-12); Aspartate Amino Transferase 23 U/L (17-59); Bilirubin,Total 0.3 mg/dL (0.2-1.3); Blood Urea Nitrogen 12 mg/dL (9-20); Calcium 8.7 mg/dL (8.4-10.2); Carbon Dioxide 21 mmol/L (22-30); Chloride 106 mmol/L (98-107); Estimated CRCL calculation 160 ml/min; Estimated Glomerular Filt Rate > 60; Glucose 224 mg/dL (65-110); Potassium 3.9 mmol/L (3.4-5.0); Sodium 139 mmol/L (137-145)
[2024-12-21] MEDS: HYDROmorphone HCL INJ (*CRX) 2 MG/ML VIAL 0.5 MG IV PUSH (00:28)
[2024-12-21 01:21] VITALS: BP 134/99; PULSE 68; RESP 14; O2SAT 100
== END 2024-12-21 01:33 | disposition home or self-care (01) ==
PROVIDERS: Emergency Provider Physician Assistant; PCP Physician Assistant
DX: M54.50 Low back pain, unspecified (principal); G89.29 Other chronic pain; M10.9 Gout, unspecified; Z96.82 Presence of neurostimulator
CPT/HCPCS: 36415; 72128; 72131; 80053; 85025; 96374; 99284; J1171; J1885